=== PATIENT | male | born 1975 | race Caucasian/White ===

== ENCOUNTER 2019-12-15 06:37 | Emergency (ER) | payer MEDICAID, OTHER ==
[2019-12-15 06:42] VITALS: BP 139/96; PULSE 90; RESP 20; TEMP 97.7
--- NOTE | 2019-12-15 07:00 | XR ---
EXAMINATION TYPE: XR elbow complete RT DATE OF EXAM: 12/15/2019 CLINICAL HISTORY: Pain. TECHNIQUE: Frontal, lateral and oblique images of the right elbow are obtained. COMPARISON: None FINDINGS: There is no acute fracture/dislocation evident in the right elbow. No abnormal fat pad si gns are seen. The overlying soft tissue appears unremarkable. IMPRESSION: Unremarkable study.
[2019-12-15] MEDS ORDERED: ACET/COD 300 MG/30 MG STARTER PACK 6 TAB BTL PO STA (07:11)
--- NOTE | 2019-12-15 07:13 | ED ---
Extremity Problem HPI - General Chief complaint: Extremity Problem,Nontraumatic Stated complaint: R Arm Pain Time Seen by Provider: 12/15/19 06:45 Source: patient Mode of arrival: ambulatory Limitations: no limitations - History of Present Illness Initial comments: 44-year-old male presenting today for chief complaint of right elbow pain. 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 Patient states he has had right elbow pain for the past few weeks. Patient states that he was told by his mother that he has tennis elbow. Patient denies a swelling redness or limited range of motion. Patient states the pain at times shoots down towards his pinky. Patient denies any neck pain shoulder pain or recent injury to the neck or shoulder. She denies any numbness tingling loss sensation coolness or pallor of the extremity. Remaining review of system negative upon arrival patient appears well. no acute distress. Denies fevers. - Related Data Previous Rx's Medication Instructions Recorded B Complex-Vit C-Vit E-Zinc [Z-Bec] 1 each PO DAILY@1200 #30 tab 05/23/16 OLANZapine [ZyPREXA] 5 mg PO TID #90 tab 05/23/16 Allergies Allergy/AdvReac Type Severity Reaction Status Date / Time No Known Allergies Allergy Verified 12/15/19 06:42 Review of Systems ROS Statement: Those systems with pertinent positive or pertinent negative responses have been documented in the HPI. ROS Other: All systems not noted in ROS Statement are negative. Past Medical History Past Medical History: No Reported History, Musculoskeletal Disorder Additional Past Medical History / Comment(s): multiple orthopedic injuries bipolar etoh abuse History of Any Multi-Drug Resistant Organisms: None Reported Past Surgical History: Orthopedic Surgery Additional Past Surgical History / Comment(s): hand Past Psychological History: Bipolar, Depression Smoking Status: Never smoker Past Alcohol Use History: Abuse, Daily Past Drug Use History: Marijuana General Exam - General Exam Comments Initial Comments: General: The patient is awake and alert, in no distress, and does not appear acutely ill. Cardiovascular: There is a regular rate and rhythm. No murmur, rub or gallop is appreciated. Respiratory: Lungs are clear to auscultation, respirations are non-labored, breath sounds are equal. No wheezes, stridor, rales, or rhonchi. Gastrointestinal: Soft, non-distended, non-tender abdomen without masses or organomegaly noted. There is no rebound or guarding present.owel sounds are unremarkable.] Musculoskeletal: Normal inspection of his bilaterally there is point localized tenderness over the PROCESS OF THE RIGHT ELBOW. PATIENT HAS NO SPECIFIC TENDERNESS WITH FLEXION OR EXTENSION AT THE RIGHT ELBOW NOR A PARTICULAR SIDE WITH FLEXION EXTENSION AT THE WRIST. PATIENT IS FULL RANGE OF MOTION WITHOUT ANY SIGNIFICANT LIMITATIONS. PATIENT HAS SOME TENDERNESS WITH RANGE OF MOTION OF THE RIGHT ELBOW PATIENTS WITH INTACT SENSATION INTACT PROXIMAL AND DISTAL TO THE AREA OF COMPLAINT. FOR TORSION OF THE RIGHT SHOULDER AND MIDLINE TENDERNESS TO PALPATION OF THE CERVICAL SPINE. NEGATIVE SPURLING'S TEST. PATIENT DIDN'T MAKE THE OKAY FINGERS CROSSED TOWARDS OPEN OPPOSE THE SMALL DIGIT AND THUMB WITHOUT DIFFICULTY OF THE RIGHT HAND. Radial pulses equal bilaterally 2+. Neurological: A&O x 3. CN II-XII intact grossly, There are no obvious motor or sensory deficits. Coordination appears grossly intact. Speech is normal. Skin: Skin is warm and dry and no rashes or lesions are noted. Psychiatric: Cooperative, appropriate mood & affect, normal judgment. Limitations: no limitations Course Vital Signs 12/15/19 06:40 Temperature 97.7 F Pulse Rate 90 Respiratory 20 Rate Blood Pressure 139/96 O2 Sat by Pulse 100 Oximetry Medical Decision Making - Medical Decision Making 44yo male presented for right elbow pain. There is no obvious soft tissue abnormalitiessoft tissue swelling no erythema or limitations in range of motion does not appear to be septic joint. Patient most likely has an overuse injury. There is no osseous injury imaging studies. Vital diagnosis included tendinitis versus developing bursitis. As patient is point localized tenderness over the cramping process. I discussed the importance of return parameters and primary care follow-up and discuss and neck treatment rest melena. Patient verbalizes understanding of discharge appear mildly discussed the case by attending provider Dr. Briones Disposition Clinical Impression: Right elbow pain Disposition: HOME SELF-CARE Condition: Good Instructions (If sedation given, give patient instructions): Elbow Bursitis (ED) Additional Instructions: Please use medication as discussed. Please follow-up with family doctor in the next 2 days. Please return to emergency room if the symptoms increase or worsen or for any other concerns. Is patient prescribed a controlled substance at d/c from ED?: No Referrals: None,Stated [Primary Care Provider] - [facility]2 [facility] Time of Disposition: 07:13
== END 2019-12-15 07:54 | disposition home or self-care (01) ==
LOC: EC 06:37
DX: M25.521 Pain in right elbow (principal); Z98.890 Other specified postprocedural states
CPT/HCPCS: 99283

== ENCOUNTER 2019-12-21 05:10 | Inpatient (IN) | payer OTHER ==
[2019-12-21] MEDS ORDERED: LORazepam 2 MG/ML INJ IV STA (05:27)
[2019-12-21] MEDS ORDERED: LORazepam 2 MG/ML INJ IV PRN (05:29)
[2019-12-21] MEDS ORDERED: THIAMINE 100 MG/ML 2 ML VIAL IM STA (05:29)
--- NOTE | 2019-12-21 05:30 | ED ---
General Adult HPI - General Chief complaint: Alcohol Stated complaint: ETOH Time Seen by Provider: 12/21/19 05:20 Source: patient Mode of arrival: ambulatory Limitations: no limitations - History of Present Illness Initial comments: Dictation was produced using [employer] dictation software. please excuse any grammatical, word or spelling errors. Chief Complaint: 44-year-old male with past medical history of daily alcohol abuse presents with withdrawal symptoms. History of Present Illness: 44-year-old male. He states he is here today because of alcohol withdrawals. Last EtOH intake was told to 14 hours ago. Patient has had severe withdrawals in the past. He has been admitted to the hospital several years ago for a twitch withdrawals. Patient states he is also here because he wants to get help and quit. Patient currently has a GPS tether to be incarcerated for several years. The ROS documented in this emergency department record has been reviewed and confirmed by me. Those systems with pertinent positive or negative responses have been documented in the HPI. All other systems are other negative and/or noncontributory. PHYSICAL EXAM: General Impression: Alert and oriented x3, not in acute distress, tremulous HEENT: Normocephalic atraumatic, extra-ocular movements intact, pupils equal and reactive to light bilaterally, mucous membranes moist. Cardiovascular: Heart regular rate and rhythm, S1&S2 audible, no murmurs, rubs or gallops Chest: Lungs clear to auscultation bilaterally, no rhonchi, no wheeze, no rales Abdomen: Bowel sounds present, abdomen soft, non-tender, non-distended, no organomegaly Musculoskeletal: Pulses present and equal in all extremities, no peripheral edema Motor: no focal deficits noted Neurological: CN II-XII grossly intact, no focal motor or sensory deficits noted Skin: Intact with no visualized rashes Psych: Anxious ED course: 44 yo male presents with clinical presentation consistent with EtOH withdrawal. Vital signs upon arrival shows heart rate of 106, rest of vital sig ns within acceptable limits. Laboratory evaluation obtained. CBC, metabolic panel is unremarkable. No electrolyte abnormality. Serum alcohol is 37. Patient is shaky at bedside. Clinical presentation consistent with EtOH withdrawal. Patient initially apprehensive about being admitted to the hospital because he has GPS tether. Discussed with patient that he has a life-threatening illness any severe distress inpatient. Skin some Ativan with some improvement of his withdrawal symptoms. Patient be admitted to [facility]. - Related Data Previous Rx's Medication Instructions Recorded B Complex-Vit C-Vit E-Zinc [Z-Bec] 1 each PO DAILY@1200 #30 tab 05/23/16 OLANZapine [ZyPREXA] 5 mg PO TID #90 tab 05/23/16 Allergies Allergy/AdvReac Type Severity Reaction Status Date / Time No Known Allergies Allergy Verified 12/15/19 06:42 Review of Systems ROS Statement: Those systems with pertinent positive or pertinent negative responses have been documented in the HPI. ROS Other: All systems not noted in ROS Statement are negative. Past Medical History Past Medical History: No Reported History, Musculoskeletal Disorder Additional Past Medical History / Comment(s): multiple orthopedic injuries bipolar etoh abuse History of Any Multi-Drug Resistant Organisms: None Reported Past Surgical History: Orthopedic Surgery Additional Past Surgical History / Comment(s): hand Past Psychological History: Bipolar, Depression Smoking Status: Never smoker Past Alcohol Use History: Abuse, Daily Past Drug Use History: Marijuana General Exam Limitations: no limitations Course Vital Signs 12/21/19 05:13 Temperature 98.1 F Pulse Rate 106 H Respiratory 20 Rate Blood Pressure 148/85 O2 Sat by Pulse 96 Oximetry Medical Decision Making - Lab Data Result diagrams: 12/21/19 05:32 12/21/19 05:32 Lab Results 12/21/19 12/21/19 Range/Units 05:32 05:32 WBC 9.5 (3.8-10.6) k/uL RBC 4.43 (4.30-5.90) m/uL Hgb 15.3 (13.0-17.5) gm/dL Hct 43.9 (39.0-53.0) % MCV 99.0 (80.0-100.0) fL MCH 34.6 (25.0-35.0) pg MCHC 35.0 (31.0-37.0) g/dL RDW 12.3 (11.5-15.5) % Plt Count 272 (150-450) k/uL Neutrophils % 70 % Lymphocytes % 19 % Monocytes % 5 % Eosinophils % 3 % Basophils % 1 % Neutrophils # 6.7 (1.3-7.7) k/uL Lymphocytes # 1.8 (1.0-4.8) k/uL Monocytes # 0.5 (0-1.0) k/uL Eosinophils # 0.2 (0-0.7) k/uL Basophils # 0.1 (0-0.2) k/uL Sodium 138 (137-145) mmol/L Potassium 4.3 (3.5-5.1) mmol/L Chloride 103 (98-107) mmol/L Carbon Dioxide 22 (22-30) mmol/L Anion Gap 13 mmol/L BUN 14 (9-20) mg/dL Creatinine 0.78 (0.66-1.25) mg/dL Est GFR (CKD-EPI)AfAm >90 (>60 ml/min/1.73 sqM) Est GFR (CKD-EPI)NonAf >90 (>60 ml/min/1.73 sqM) Glucose 105 H (74-99) mg/dL Calcium 9.1 (8.4-10.2) mg/dL Magnesium 1.8 (1.6-2.3) mg/dL Total Bilirubin 0.9 (0.2-1.3) mg/dL AST 40 (17-59) U/L ALT 25 (4-49) U/L Alkaline Phosphatase 96 (38-126) U/L Total Protein 7.6 (6.3-8.2) g/dL Albumin 4.6 (3.5-5.0) g/dL Lipase 109 (23-300) U/L Serum Alcohol 37 mg/dL Disposition Clinical Impression: Alcohol withdrawal syndrome Disposition: ADMITTED IP TO THIS [facility] Condition: Fair Decision Time: 06:03
[2019-12-21] MEDS ORDERED: NALOXONE 0.4 MG/ML 1 ML VIAL IV PRN (05:35)
[2019-12-21] MEDS ORDERED: ACETAMINOPHEN TAB 325 MG TAB PO PRN (05:35)
[2019-12-21 05:59] LABS: Basophils # (A) 0.1 k/uL (0-0.2); Basophils % (A) 1 %; Eosinophils # (A) 0.2 k/uL (0-0.7); Eosinophils % (A) 3 %; HCT 43.9 % (39.0-53.0); HGB 15.3 gm/dL (13.0-17.5); Lymphocytes # (A) 1.8 k/uL (1.0-4.8); Lymphocytes % (A) 19 %; MCH 34.6 pg (25.0-35.0); Mean Platelet Volume 7.4; Monocytes # (A) 0.5 k/uL (0-1.0); Monocytes % (A) 5 %; Neutrophils # (A) 6.7 k/uL (1.3-7.7); Neutrophils % (A) 70 %; Platelet Count 272 k/uL (150-450); RBC 4.43 m/uL (4.30-5.90); RDW 12.3 % (11.5-15.5); WBC 9.5 k/uL (3.8-10.6)
[2019-12-21] MEDS: SODIUM CHLORIDE 0.9% 1,000 ML IV SCH ×2 (06:01→18:03)
[2019-12-21 06:02] LABS: ALT 25 U/L (4-49); AST 40 U/L (17-59); African American GFR (CKD) >90 (>60 ml/min/1.73 sqM); Albumin 4.6 g/dL (3.5-5.0); Alcohol 37 mg/dL; Alkaline Phosphatase 96 U/L (38-126); Anion Gap 13 mmol/L; Blood Urea Nitrogen 14 mg/dL (9-20); Calcium 9.1 mg/dL (8.4-10.2); Carbon Dioxide 22 mmol/L (22-30); Chloride 103 mmol/L (98-107); Glucose 105 mg/dL (74-99); Magnesium 1.8 mg/dL (1.6-2.3); Non-African American GFR(CKD) >90 (>60 ml/min/1.73 sqM); Potassium 4.3 mmol/L (3.5-5.1); Sodium 138 mmol/L (137-145); Total Bilirubin 0.9 mg/dL (0.2-1.3); Total Protein 7.6 g/dL (6.3-8.2)
[2019-12-21] MEDS ORDERED: ONDANSETRON 4 MG/2 ML VIAL IVP PRN (06:50)
[2019-12-21] MEDS: LORazepam 2 MG/ML INJ IV PRN ×4 (08:33→20:48)
--- NOTE | 2019-12-21 10:07 | P.HPIM ---
History of Present Illness 44-year-old the female came in for all call withdraws. Patient last drink was couple days ago patient drinks about one fifth of vodka every single day quit drinking for few months started drinking about a week ago patient is having alcohol withdrawals now his serum via score is around 14. Patient was complaining of some abdominal discomfort along with nausea denied any fever chills dysuria. Review of Systems REVIEW OF SYSTEMS: CONSTITUTIONAL: No fever, no malaise, no fatigue. HEENT: No recent visual problems or hearing problems. Denied any sore throat. CARDIOVASCULAR: No chest pain, orthopnea, PND, no palpitations, no syncope. PULMONARY: No shortness of breath, no cough, no hemoptysis. GASTROINTESTINAL: As mentioned in HPI NEUROLOGICAL: No headaches, no weakness, no numbness. HEMATOLOGICAL: Denies any bleeding or petechiae. GENITOURINARY: Denies any burning micturition, frequency, or urgency. MUSCULOSKELETAL/RHEUMATOLOGICAL: Denies any joint pain, swelling, or any muscle pain. ENDOCRINE: Denies any polyuria or polydipsia. The rest of the 14-point review of systems is negative. Past Medical History Past Medical History: No Reported History, Musculoskeletal Disorder Additional Past Medical History / Comment(s): multiple orthopedic injuries bipolar etoh abuse History of Any Multi-Drug Resistant Organisms: None Reported Past Surgical History: Orthopedic Surgery Additional Past Surgical History / Comment(s): hand Past Psychological History: Bipolar, Depression Smoking Status: Never smoker Past Alcohol Use History: Abuse, Daily Past Drug Use History: Marijuana - Past Family History Father Family Medical History: Cancer Additional Family Medical History / Comment(s): ETOH Mother Family Medical History: No Reported History Medications and Allergies Home Medications Medication Instructions Recorded Confirmed Type No Known Home Medications 12/21/19 12/21/19 History Allergies Allergy/AdvReac Type Severity Reaction Status Date / Time No Known Allergies Allergy Verified 12/21/19 09:17 Physical Exam Vitals: Vital Signs Temp Pulse Pulse Resp BP BP Pulse Ox 12/21/19 08:00 98.2 F 99 20 141/89 94 L 12/21/19 06:38 97.5 F L 110 H 18 132/88 95 12/21/19 05:13 98.1 F 106 H 20 148/85 96 Intake and Output 12/20/19 12/21/19 12/21/19 22:59 06:59 14:59 Other: Weight 81.647 kg PHYSICAL EXAMINATION: GENERAL: The patient is alert and oriented x3, not in any acute distress. Well developed, well nourished. As have tremors HEENT: Pupils are round and equally reacting to light. EOMI. No scleral icterus. No conjunctival pallor. Normocephalic, atraumatic. No pharyngeal erythema. No thyromegaly. CARDIOVASCULAR: S1 and S2 present. No murmurs, rubs, or gallops. PULMONARY: Chest is clear to auscultation, no wheezing or crackles. ABDOMEN: Soft, nontender, nondistended, normoactive bowel sounds. No palpable organomegaly. MUSCULOSKELETAL: No joint swelling or deformity. EXTREMITIES: No cyanosis, clubbing, or pedal edema. NEUROLOGICAL: Gross neurological examination did not reveal any focal deficits. SKIN: No rashes. Results CBC & Chem 7: 12/21/19 05:32 12/21/19 05:32 Labs: Abnormal Lab Results - Last 24 Hours (Table) 12/21/19 Range/Units 05:32 Glucose 105 H (74-99) mg/dL Thrombosis Risk Factor Assmnt - Choose All That Apply Each Factor Represents 1 point: Age 41-60 years Thrombosis Risk Factor Assessment Total Risk Factor Score: 1 Thrombosis Risk Factor Assessment Level: Low Risk Assessment and Plan Plan: -Alcohol withdrawal: Patient will be on Ativan CIWA protocol. IV fluids thiamine multivitamin [facility]. -Alcoholic gastritis: Protonix and Zofran -Alcohol abuse: Patient is willing alcohol but cannot go to rehabilitation program because he has 4 kids and he is incarcerated -Depression: Antidepressants are not will be helpful when he drinks alcohol. -Marijuana use COUNSELING WAS PROVIDED
[2019-12-21] MEDS: PANTOPRAZOLE 40 MG/10 ML VIAL IVP SCH (11:05)
[2019-12-21 12:13] LABS: Glucose,Whole Blood 169 mg/dL (75-99)
[2019-12-21 17:16] LABS: Glucose,Whole Blood 124 mg/dL (75-99)
[2019-12-21] MEDS: THIAMINE 100 MG TAB PO SCH (17:28)
[2019-12-21 20:31] LABS: Glucose,Whole Blood 122 mg/dL (75-99)
[2019-12-22] MEDS: SODIUM CHLORIDE 0.9% 1,000 ML IV SCH ×2 (04:46→16:48)
[2019-12-22 08:20] LABS: Glucose,Whole Blood 124 mg/dL (75-99)
[2019-12-22] MEDS: PANTOPRAZOLE 40 MG/10 ML VIAL IVP SCH (08:39)
[2019-12-22] MEDS: THIAMINE 100 MG TAB PO SCH ×2 (08:39→16:48)
[2019-12-22] MEDS: LORazepam 2 MG/ML INJ IV PRN ×2 (08:56→20:14)
[2019-12-22 11:10] LABS: Glucose,Whole Blood 116 mg/dL (75-99)
[2019-12-22] MEDS: NICOTINE 14MG/24HR PATCH TRANSDERM SCH (12:28)
--- NOTE | 2019-12-22 16:11 | P.PN ---
Subjective Progress Note Date: 12/22/19 Principal diagnosis: 44-year-old the female came in for alcohol withdrawal. Patient last drink was couple days ago patient drinks about one fifth of vodka every single day quit angely for few months started drinking about a week ago patient is having alcohol withdrawals now his current CIWA score is around 14. Patient was complaining of some abdominal discomfort along with nausea denied any fever chills dysuria. 12/22/2019 Patient is seen and evaluated and follow-up and continues to have some nausea. Patient was given Zofran and did tolerate sandwich. Patient continues to have some shaking and remains on the CIWA at this time. No acute overnight issues. Currently no reports of chest pain, shortness of breath, or palpitations. Patient is afebrile. Discussed with the patient at length about possible rehab upon discharge and although he really wants to quit he is unable to afford time off of work to go to rehab. Patient would like resources within the community and would like to seek counseling in the outpatient setting upon discharge. Case management is following. Social work will evaluate the patient. Objective - Vital Signs Vital signs: Vital Signs Temp 98.2 F 12/22/19 11:46 Pulse 84 12/22/19 11:46 Resp 17 12/22/19 11:46 BP 137/75 12/22/19 11:46 Pulse Ox 94 L 12/22/19 11:46 Intake & Output 12/21/19 12/22/19 12/22/19 18:59 06:59 18:59 Intake Total 360 1040 1600 Balance 360 1040 1600 Weight 81 kg Intake: Intake, IV Titration 800 800 Amount Sodium Chloride 0.9% 1, 800 800 000 ml @ 100 mls/hr IV . Q10H [facility] Rx#:[id number] Oral 360 240 800 Other: Voiding Method Toilet Toilet # Voids 3 1 3 - Exam GENERAL: The patient is alert and oriented x3, not in any acute distress. Well developed, well nourished. Is having mild tremors, pain team donned CIWA HEENT: Pupils are round and equally reacting to light. EOMI. No scleral icterus. No conjunctival pallor. Normocephalic, atraumatic. No pharyngeal erythema. No thyromegaly. CARDIOVASCULAR: S1 and S2 present. No murmurs, rubs, or gallops. PULMONARY: Chest is clear to auscultation, no wheezing or crackles. ABDOMEN: Soft, nontender, nondistended, normoactive bowel sounds. No palpable organomegaly. MUSCULOSKELETAL: No joint swelling or deformity. EXTREMITIES: No cyanosis, clubbing, or pedal edema. NEUROLOGICAL: Gross neurological examination did not reveal any focal deficits. SKIN: No rashes. - Labs CBC & Chem 7: 12/21/19 05:32 12/21/19 05:32 Labs: Abnormal Lab Results - Last 24 Hours (Table) 12/21/19 12/21/19 12/22/19 Range/Units 17:15 20:30 08:18 POC Glucose (mg/dL) 124 H 122 H 124 H (75-99) mg/dL 12/22/19 Range/Units 11:09 POC Glucose (mg/dL) 116 H (75-99) mg/dL Assessment and Plan Assessment: -Alcohol withdrawal: Patient remains on [facility] protocol. -Alcoholic gastritis: Protonix and Zofran -Alcohol abuse: Patient is willing to quit alcohol but cannot go to rehabilitation program because he has 4 kids and needs to work. -Depression: Antidepressants are not will be helpful when he drinks alcohol. -Marijuana use COUNSELING WAS PROVIDED Plan: Continue with [facility] at this time and will continue to monitor closely. Social work to evaluate the patient as he is requesting outside resources for possible counseling to assist in quitting alcohol. Patient is not open to rehab at this time as he needs to work. Possible discharge in 24-48 hours.
[2019-12-22 20:23] VITALS: RESP 16
[2019-12-23] MEDS: SODIUM CHLORIDE 0.9% 1,000 ML IV SCH ×2 (01:22→08:36)
[2019-12-23 05:11] VITALS: BP 121/74; PULSE 68; TEMP 97.6
[2019-12-23] MEDS: THIAMINE 100 MG TAB PO SCH (08:35)
[2019-12-23] MEDS: PANTOPRAZOLE 40 MG/10 ML VIAL IVP SCH (08:36)
[2019-12-23] MEDS: NICOTINE 14MG/24HR PATCH TRANSDERM SCH (08:41)
--- NOTE | 2019-12-23 12:22 | P.DS ---
Providers Date of admission: 12/21/19 05:35 Expected date of discharge: 12/23/19 Attending physician: Dayanara Traore Primary care physician: Stated None Hospital Course: Final diagnosis -Alcohol withdrawal -Alcoholic gastritis -Alcohol abuse -Depression -Marijuana use Discharge disposition Patient is being discharged in a stable condition with guarded prognosis to home and will follow-up with primary care provider upon discharge. Patient was also given resources within his community for possible counseling and help with alcohol rehab. Patient was also provided prescription for some Librium. Total time taken is 35 minutes. History of present illness This is a 44-year-old male who came in for alcohol withdrawal and was being closely monitored. Patient was maintained on the CIWA protocol. Continued to have some abdominal discomfort along with nausea although was relieved with Zofran. Today patient is feeling much better and denies any nausea and has been tolerating diet. Patient would like to go home today. Social work evaluated the patient and provided some resources for community mental health and some counseling resources. Patient states he would like to do rehab although cannot at this time as he has to continue to work to pay his bills. Currently no reports of chest pain, shortness of breath, or palpitations. Patient is afebrile. Prescription for Librium was provided upon discharge and instructed the patient to continue to avoid alcohol use. On exam vital signs are stable. Temp is 97.6F, pulse is 68, respirations are 16, blood pressure is 121/74, oxygen saturation is 96% on room air. Cardio S1, S2 are present. Respiratory shows clear to auscultation. Abdomen is soft and nontender. Nervous system shows no focal deficits. Please refer to medication reconciliation sheet for a list of medications. Patient Condition at Discharge: Fair Plan - Discharge Summary Discharge Rx Participant: Yes New Discharge Prescriptions: New chlordiazePOXIDE HCl [Librium] 10 mg PO QID 3 Days #12 capsule Thiamine [Vitamin B-1] 100 mg PO BID-W/MEALS 30 Days #60 tab Discharge Medication List Thiamine [Vitamin B-1] 100 mg PO BID-W/MEALS 30 Days #60 tab 12/23/19 [Rx] chlordiazePOXIDE HCl [Librium] 10 mg PO QID 3 Days #12 capsule 12/23/19 [Rx] Patient Instructions/Handouts: Thiamine (By mouth), Chlorthalidone (By mouth), How to Stop Smoking (DC), Depression (DC), Abuse of Alcohol (DC) Activity/Diet/Wound Care/Special Instructions: Activity Limited until follow-up Follow-up with primary care provider upon discharge May use Librium as needed and avoid any alcohol intake Continue current diet Discharge Disposition: HOME SELF-CARE
== END 2019-12-23 12:13 | disposition home or self-care (01) | DRG 897 ==
LOC: EC 05:10 → 3SCARD 05:35 → 5NMEDONC 23:01
PROVIDERS: ADMIT Hospitalist; ATTEND Hospitalist
DX: F10.239 Alcohol dependence with withdrawal, unspecified (principal); F12.90 Cannabis use, unspecified, uncomplicated; K29.20 Alcoholic gastritis without bleeding; F31.9 Bipolar disorder, unspecified; Z71.51 Drug abuse counseling and surveillance of drug abuser
CPT/HCPCS: 36415; 80053; 80320; 83690; 83735; 85025; 93005; 96374; 99285

== ENCOUNTER 2021-02-13 11:41 | Emergency (ER) | payer OTHER ==
[2021-02-13 11:45] VITALS: BP 154/98; PULSE 82; RESP 18; TEMP 97.9
--- NOTE | 2021-02-13 12:02 | ED ---
Upper Extremity HPI - General Chief Complaint: Extremity Injury, Upper Stated Complaint: hand injury Time Seen by Provider: 02/13/21 11:47 Source: patient, RN notes reviewed Mode of arrival: ambulatory Limitations: no limitations - History of Present Illness Initial Comments: 45-year-old male presents emergency Department with chief complaint right hand tenderness. Patient states that he was walking towards his back states he tripped falling onto his right hand. Patient does admit that he's had prior surgery on his right hand for fracture. Patient complains of pain over the fourth and fifth metacarpal region. No paresthesias no head injury no loss conscious. - Related Data Previous Rx's Medication Instructions Recorded Thiamine [Vitamin B-1] 100 mg PO BID-W/MEALS 30 Days #60 12/23/19 tab chlordiazePOXIDE HCl [Librium] 10 mg PO QID 3 Days #12 capsule 12/23/19 Allergies Allergy/AdvReac Type Severity Reaction Status Date / Time No Known Allergies Allergy Verified 02/13/21 11:43 Review of Systems ROS Statement: Those systems with pertinent positive or pertinent negative responses have been documented in the HPI. ROS Other: All systems not noted in ROS Statement are negative. Past Medical History Past Medical History: No Reported History, Musculoskeletal Disorder Additional Past Medical History / Comment(s): multiple orthopedic injuries bipolar etoh abuse History of Any Multi-Drug Resistant Organisms: None Reported Past Surgical History: Orthopedic Surgery Additional Past Surgical History / Comment(s): hand Past Psychological History: Bipolar, Depression Smoking Status: Never smoker Past Alcohol Use History: Occasional Past Drug Use History: Marijuana - Past Family History Father Family Medical History: Cancer Additional Family Medical History / Comment(s): ETOH Mother Family Medical History: No Reported History General Exam Limitations: no limitations General appearance: alert, in no apparent distress Head exam: Present: atraumatic, normocephalic, normal inspection Eye exam: Present: normal appearance, PERRL, EOMI. Absent: scleral icterus, conjunctival injection, periorbital swelling Neck exam: Present: full ROM Respiratory exam: Present: normal lung sounds bilaterally. Absent: respiratory distress, wheezes, rales, rhonchi, stridor Cardiovascular Exam: Present: regular rate, normal rhythm, normal heart sounds. Absent: systolic murmur, diastolic murmur, rubs, gallop, clicks Extremities exam: Present: other (Right hand swelling over the fourth and fifth metacarpal area with tenderness and ecchymosis) Neurological exam: Present: alert Skin exam: Present: warm, dry, intact, normal color. Absent: rash Course Vital Signs 02/13/21 11:43 Temperature 97.9 F Pulse Rate 82 Respiratory 18 Rate Blood Pressure 154/98 O2 Sat by Pulse 97 Oximetry Procedures - Orthopedic Splinting/Casting Injury #1 Side: right Upper Extremity Injury Location: short arm, hand Upper Extremity Immobilizer: ulnar gutter, synthetic pre-padded splint Medical Decision Making - Medical Decision Making Patient has fracture of the fourth and fifth metacarpal the base. Patient was splinted and will follow-up with his orthopedic physician Dr. Ríos. Disposition Clinical Impression: Fracture of base of fifth metacarpal bone of right hand, Fracture of base of fourth metacarpal bone of right hand Disposition: HOME SELF-CARE Condition: Stable Instructions (If sedation given, give patient instructions): Hand Fracture (ED) Additional Instructions: Please return to the Emergency Department if symptoms worsen or any other concerns. Is patient prescribed a controlled substance at d/c from ED?: No Referrals: Carlos A Jamil MD [Primary Care Provider] - 1-2 days Piero Ríos DO [Doctor of Osteopathic Medicine] - 1-2 days Time of Disposition: 12:29
--- NOTE | 2021-02-13 12:27 | XR ---
EXAMINATION TYPE: XR hand complete RT DATE OF EXAM: 02/13/2021 COMPARISON: NONE HISTORY: Pain TECHNIQUE: Three views are submitted. FINDINGS: There are displaced fractures involving the base of the fourth and fifth digit in suspicion for intra -articular fracture involving the base of the third digit. Extensive soft tissue edema. Remaining oss eous structures intact. The joint spaces are preserved and there is no acute fracture or dislocation. IMPRESSION: 1. Acute displaced fractures involving the base of the fourth and fifth metacarpals. Suspected additi onal nondisplaced intra-articular fracture base of third metacarpal.
== END 2021-02-13 13:36 | disposition home or self-care (01) ==
LOC: EC 11:41
DX: S62.316A Displaced fracture of base of fifth metacarpal bone, right hand, initial encounter for closed fracture (principal); F32.9 Major depressive disorder, single episode, unspecified; F12.90 Cannabis use, unspecified, uncomplicated; W01.0XXA Fall on same level from slipping, tripping and stumbling without subsequent striking against object, initial encounter; Y93.01 Activity, walking, marching and hiking
CPT/HCPCS: 29125; 99283

== ENCOUNTER → 2021-03-08 | Outpatient (CLI) | payer OTHER ==
[2021-03-08 13:37] LABS: HCT 44.6 % (39.0-53.0); HGB 15.3 gm/dL (13.0-17.5); MCH 35.5 pg (25.0-35.0); MCHC 34.4 g/dL (31.0-37.0); MCV 103.1 fL (80.0-100.0); Mean Platelet Volume 6.8; Platelet Count 280 k/uL (150-450); RBC 4.33 m/uL (4.30-5.90); RDW 11.9 % (11.5-15.5); WBC 6.8 k/uL (3.8-10.6)
== END | disposition home or self-care (01) ==
LOC: LABPAT 11:29
PROVIDERS: ATTEND Surgery
DX: Z01.812 Encounter for preprocedural laboratory examination (principal); K40.90 Unilateral inguinal hernia, without obstruction or gangrene, not specified as recurrent
CPT/HCPCS: 85027

== ENCOUNTER 2021-03-10 06:06 | Day surgery (SDC) | payer OTHER ==
[2021-03-09 12:30] VITALS: BMI 20.1
[~2021-03-10 06:06] MED LIST: ACETAMINOPHEN TAB 500 MG TAB PO PRN; DEXAMETHASONE SOD PHOSPHATE 4 MG/ML 1 ML VIAL IV ONE; HEPARIN SODIUM,PORCINE/PF 5,000 UNIT/0.5 ML SYRINGE SQ PRN; LACTATED RINGERS 1,000 ML IV SCH; MIDAZOLAM 2 MG/2 ML VIAL IV PRN; ONDANSETRON 4 MG/2 ML VIAL IVP ONE; SCOPOLAMINE 1.5MG/72HR PATCH TRANSDERM ONE
[2021-03-10] MEDS ORDERED: HYDROmorphone 0.5 MG/0.5 ML SYRINGE IVP PRN (07:00)
[2021-03-10] MEDS ORDERED: GLYCOPYRROLATE 0.2 MG/ML 2 ML VIAL ONE (07:46)
[2021-03-10] MEDS ORDERED: SUCCINYLCHOLINE CHLORIDE 100 MG/5 ML SYR IV ONE (07:46)
[2021-03-10] MEDS ORDERED: ROCURONIUM 10 MG/ML (5 ML VIAL) IV ONE (07:46)
[2021-03-10] MEDS ORDERED: fentaNYL (PF) 50 MCG/ML 2 ML AMP ONE (07:46)
[2021-03-10] MEDS ORDERED: LIDOCAINE 1% INJ 10MG/ML (20 ML MDV) ONE (07:46)
[2021-03-10] MEDS ORDERED: NEOSTIGMINE 1 MG/ML 10 ML VIAL ONE (07:46)
[2021-03-10] MEDS ORDERED: PROPOFOL 10 MG/ML 20 ML VIAL IV ONE (07:46)
[2021-03-10] MEDS ORDERED: MIDAZOLAM 2 MG/2 ML VIAL ONE (07:46)
[2021-03-10] MEDS ORDERED: KETOROLAC 15 MG/ML 1 ML VIAL ONE (07:46)
[2021-03-10] MEDS ORDERED: BUPIVACAIN-EPI 0.25%-1:200,000 30 ML VIAL SQ ONE (08:09)
--- NOTE | 2021-03-10 09:05 | P.OP ---
Date of Procedure: 03/10/21 Procedure(s) Performed: PREOPERATIVE DIAGNOSIS: Right inguinal hernia POSTOPERATIVE DIAGNOSIS: Same PROCEDURE: Laparoscopic da Syl assisted repair right inguinal hernia with mesh SURGEON: Dr. Soto ANESTHESIA: General OPERATIVE PROCEDURE DETAILS: Patient was placed in the operating table in the supine position. The patient was placed under general anesthesia. The abdomen was prepped and draped in usual sterile fashion. A small curvilinear supraumbilical incision was made. The fascia was retracted anteriorly with Lawanda forceps. The Veress needle was inserted. The saline drop test was normal. Insufflation took place to 15 mmHg. An 8 mm trocar was placed into the peritoneal cavity. 2 additional 8 mm trochars were placed in the right upper quadrant and left upper quadrant under visualization. The robotic arms were then brought in and docked into place. The fenestrated bipolar was used in the left arm and the laparoscopic marly was utilized in the right arm. A 30 8 mm scope was used in the up position. The peritoneal cavity was inspected. Patient had a direct left inguinal hernia. No hernia was seen on the right-hand side. The peritoneum was incised in a horizontal fashion cephalad to the internal inguinal ring. Following that careful dissection of the preperitoneal space took place. This took place using both electrocautery, sharp dissection but primarily blunt dissection. Visualization of the pubic tubercle and Leoncio's ligament took place medially. Full dissection took place laterally as well. The hernia sac was fully dissected. Once we had adequate space the Bard 3-D mid extra-large mesh was advanced into the preperitoneal space and flattened out appropriately to cover all potential hernia sites. No sutures were used. The peritoneal defect was then closed using a locking 2-0 VLok suture. The redundant preperitoneal tissue was incorporated into our peritoneal closure. The pneumoperitoneum was then evacuated. The skin of all 3 sites was closed using a 4-0 Monocryl stitch. Skin glue was then applied. HERNIA CHARACTERISTICS: Length: 2 cm Width: 2 cm Type: Reducible direct inguinal TYPE OF MESH USED: Bard 3-D XL LOCATION OF MESH: Preperitoneal FIXATION: None DISPOSITION: Stable to recovery room
[2021-03-10 09:19] VITALS: TEMP 97.2
[2021-03-10 09:27] VITALS: RESP 16
[2021-03-10] MEDS ORDERED: LACTATED RINGERS 1,000 ML IV ONE (09:49)
[2021-03-10 10:32] VITALS: BP 132/71; PULSE 56
[2021-03-10] MEDS ORDERED: ACETAMINOPHEN TAB 325 MG TAB PO SCH (12:00)
[2021-03-10] MEDS ORDERED: IBUPROFEN 600 MG TAB PO SCH (12:15)
== END 2021-03-10 10:31 | disposition home or self-care (01) ==
LOC: OR 06:06
PROVIDERS: ATTEND Surgery
DX: K40.90 Unilateral inguinal hernia, without obstruction or gangrene, not specified as recurrent (principal); F41.9 Anxiety disorder, unspecified; F31.9 Bipolar disorder, unspecified; D64.9 Anemia, unspecified; Z98.890 Other specified postprocedural states
CPT/HCPCS: 49650; S2900

== ENCOUNTER 2021-06-09 11:32 | Observation (INO) | payer OTHER ==
[2021-06-09] MEDS ORDERED: LORazepam 2 MG/ML INJ IV STA ×2 (12:33→14:38)
[2021-06-09] MEDS ORDERED: SODIUM CHLORIDE 0.9% 1,000 ML IV STA ×2 (12:33)
[2021-06-09] MEDS ORDERED: ONDANSETRON 4 MG/2 ML VIAL IVP STA (12:34)
--- NOTE | 2021-06-09 12:34 | ED ---
General Adult HPI - General Chief complaint: Nausea/Vomiting/Diarrhea Stated complaint: Alcohol Withdrawal Time Seen by Provider: 06/09/21 12:19 Source: patient Mode of arrival: ambulatory Limitations: no limitations - History of Present Illness Initial comments: 45-year-old male with a past medical history of bipolar disorder, alcohol abuse presents to the emergency room for a chief complaint of alcohol withdrawal. Patient states his last dose of alcohol was last night. States he drinks a fifth of vodka per day. Patient states today he is nauseous and vomiting and feels he is withdrawing. States he has not decided if he is quitting drinking o r not. Patient denies any suicidal thoughts or thoughts of harming himself.Patient has no other complaints at this time including shortness of breath, chest pain, abdominal pain, nausea or vomiting, headache, or visual changes. - Related Data Home Medications Medication Instructions Recorded Confirmed No Known Home Medications 06/09/21 06/09/21 Allergies Allergy/AdvReac Type Severity Reaction Status Date / Time No Known Allergies Allergy Verified 06/09/21 13:54 Review of Systems ROS Statement: Those systems with pertinent positive or pertinent negative responses have been documented in the HPI. ROS Other: All systems not noted in ROS Statement are negative. Past Medical History Past Medical History: No Reported History, Musculoskeletal Disorder Additional Past Medical History / Comment(s): multiple orthopedic injuries bipolar etoh abuse History of Any Multi-Drug Resistant Organisms: None Reported Past Surgical History: Orthopedic Surgery Additional Past Surgical History / Comment(s): hand Past Psychological History: Bipolar, Depression Smoking Status: Current every day smoker Past Alcohol Use History: Abuse, Daily, Heavy Past Drug Use History: Marijuana - Past Family History Father Family Medical History: Cancer Additional Family Medical History / Comment(s): ETOH Mother Family Medical History: No Reported History General Exam Limitations: no limitations General appearance: alert, in no apparent distress Head exam: Present: atraumatic Eye exam: Present: normal appearance, PERRL, EOMI. Absent: scleral icterus, conjunctival injection ENT exam: Present: normal exam, mucous membranes moist Neck exam: Present: normal inspection, full ROM. Absent: tenderness Respiratory exam: Present: normal lung sounds bilaterally. Absent: respiratory distress, wheezes Cardiovascular Exam: Present: regular rate, normal rhythm, normal heart sounds GI/Abdominal exam: Present: soft, normal bowel sounds. Absent: distended, tenderness Neurological exam: Present: alert Course Vital Signs 06/09/21 12:05 Temperature 98.5 F Pulse Rate 106 H Respiratory 20 Rate Blood Pressure 136/89 O2 Sat by Pulse 95 Oximetry Medical Decision Making - Medical Decision Making Vitals are stable. Laboratory evaluation was obtained which did show hemoconcentration likely related to dehydration. CMP does reveal an anion gap of 17, likely secondary to alcoholic ketosis. Alcohol 259. at this time patient is not safe for discharge home. He did drive his car into the ER and lives half hour away. He contacted a ride home. Patient will need to be monitored until he is sober to make medical decisions. He is agreeable to this. Patient will be started on C1 protocol as he may have withdrawal symptoms. He will return h ere for any worsening symptoms. - Lab Data Result diagrams: 06/09/21 12:55 06/09/21 12:55 Lab Results 06/09/21 06/09/21 06/09/21 Range/Units 12:55 12:55 12:55 WBC 10.2 (3.8-10.6) k/uL RBC 4.96 (4.30-5.90) m/uL Hgb 18.4 H (13.0-17.5) gm/dL Hct 52.4 (39.0-53.0) % MCV 105.7 H (80.0-100.0) fL MCH 37.1 H (25.0-35.0) pg MCHC 35.1 (31.0-37.0) g/dL RDW 13.3 (11.5-15.5) % Plt Count 426 (150-450) k/uL MPV 6.6 Neutrophils % 62 % Lymphocytes % 30 % Monocytes % 4 % Eosinophils % 1 % Basophils % 1 % Neutrophils # 6.4 (1.3-7.7) k/uL Lymphocytes # 3.1 (1.0-4.8) k/uL Monocytes # 0.4 (0-1.0) k/uL Eosinophils # 0.1 (0-0.7) k/uL Basophils # 0.1 (0-0.2) k/uL Macrocytosis Moderate Sodium 144 (137-145) mmol/L Potassium 4.4 (3.5-5.1) mmol/L Chloride 110 H (98-107) mmol/L Carbon Dioxide 17 L (22-30) mmol/L Anion Gap 17 mmol/L BUN 8 L (9-20) mg/dL Creatinine 0.68 (0.66-1.25) mg/dL Est GFR (CKD-EPI)AfAm >90 (>60 ml/min/1.73 sqM) Est GFR (CKD-EPI)NonAf >90 (>60 ml/min/1.73 sqM) Glucose 132 H (74-99) mg/dL Calcium 9.7 (8.4-10.2) mg/dL Magnesium 1.8 (1.6-2.3) mg/dL Total Bilirubin 0.3 (0.2-1.3) mg/dL AST 28 (17-59) U/L ALT 16 (4-49) U/L Alkaline Phosphatase 91 (38-126) U/L Total Protein 8.2 (6.3-8.2) g/dL Albumin 5.0 (3.5-5.0) g/dL Serum Alcohol 259 H* mg/dL Disposition Clinical Impression: Alcohol intoxication Disposition: ADMITTED IP TO THIS HOSP Is patient prescribed a controlled substance at d/c from ED?: No Referrals: Carlos A Jamil MD [Primary Care Provider] - 1-2 days Time of Disposition: 14:56
[2021-06-09 13:05] LABS: Basophils # (A) 0.1 k/uL (0-0.2); Basophils % (A) 1 %; Eosinophils # (A) 0.1 k/uL (0-0.7); Eosinophils % (A) 1 %; HCT 52.4 % (39.0-53.0); HGB 18.4 gm/dL (13.0-17.5); Lymphocytes # (A) 3.1 k/uL (1.0-4.8); Lymphocytes % (A) 30 %; MCH 37.1 pg (25.0-35.0); MCHC 35.1 g/dL (31.0-37.0); MCV 105.7 fL (80.0-100.0); Macrocytosis Moderate; Mean Platelet Volume 6.6; Monocytes # (A) 0.4 k/uL (0-1.0); Monocytes % (A) 4 %; Neutrophils # (A) 6.4 k/uL (1.3-7.7); Neutrophils % (A) 62 %; Platelet Count 426 k/uL (150-450); RBC 4.96 m/uL (4.30-5.90); RDW 13.3 % (11.5-15.5); WBC 10.2 k/uL (3.8-10.6)
[2021-06-09 13:15] LABS: Magnesium 1.8 mg/dL (1.6-2.3)
[2021-06-09 14:15] LABS: ALT 16 U/L (4-49); AST 28 U/L (17-59); African American GFR (CKD) >90 (>60 ml/min/1.73 sqM); Alkaline Phosphatase 91 U/L (38-126); Anion Gap 17 mmol/L; Blood Urea Nitrogen 8 mg/dL (9-20); Calcium 9.7 mg/dL (8.4-10.2); Carbon Dioxide 17 mmol/L (22-30); Chloride 110 mmol/L (98-107); Glucose 132 mg/dL (74-99); Non-African American GFR(CKD) >90 (>60 ml/min/1.73 sqM); Potassium 4.4 mmol/L (3.5-5.1); Sodium 144 mmol/L (137-145); Total Bilirubin 0.3 mg/dL (0.2-1.3); Total Protein 8.2 g/dL (6.3-8.2)
[2021-06-09] MEDS ORDERED: LORazepam 2 MG/ML INJ IV PRN ×3 (14:48)
[2021-06-09] MEDS ORDERED: SODIUM CHLORIDE 0.9% 1,000 ML with MVI, ADULT NO.4 WITH VIT K 10 ML, THIAMINE 100 MG, F... IV ONE ×4 (14:48)
[2021-06-09] MEDS ORDERED: THIAMINE 100 MG/ML 2 ML VIAL IM STA (14:48)
[2021-06-09] MEDS ORDERED: ONDANSETRON 4 MG/2 ML VIAL IVP PRN (14:52)
[2021-06-09] MEDS ORDERED: NALOXONE 0.4 MG/ML 1 ML VIAL IV PRN (14:52)
--- NOTE | 2021-06-09 16:45 | P.HPIM ---
<Curt Falcon - Last Filed: 06/09/21 16:07> History of Present Illness H&P Date: 06/09/21 History of Presenting Illness: Patient is a 45-year-old male with a past medical history of bipolar disorder, EtOH abuse, nicotine dependence, and marijuana use. Patient [facility] with a chief complaint of alcohol withdrawal. Per ED documentation patient reported feeling anxious, nauseous, tremors, and was vomiting feeling as though he was going through withdrawal. Patient was seen and fully evaluated in the ED. His blood alcohol level was 259 and concerns of alcoholic ketoacidosis with normal anion gap acidosis as evidenced by chloride of 110, carbon dioxide 17, and anion gap of 17. CBC revealed macrocytic macrochromic polycythemia with hemoglobin of 18.4, MCV 105.7, and MCH of 37.1. Patient reported drinking at least a fifth of vodka daily with last drink reported being last night. Patient states he does not want help or to be placed in a rehab because he does not have a problem and knows how to quit if he wants to. In addition to alcohol abuse patient reports smoking one pack of cigarettes daily as well as daily marijuana use. Patient denies having any other drug use. Patient also denies having any other complaints including headache, lightheadedness, dizziness, chest pain, palpitations, shortness of breath, or experiencing any numbness/tingling/weakness in extremities. Patient denies having any recent injuries or falls. Patient is agitated and argumentative at times and using foul language throughout assessment. Security was called to bedside during assessment. Review of systems: Pertinent positives and negatives as discussed in HPI, a complete review of systems was performed and all other systems are negative. Physical exam: Vital signs reviewed and stable. General: Nontoxic, no distress and appears stated age. Disheveled and unkempt appearance. Derm: Skin warm and dry, normal coloration for ethnicity. Head: Atraumatic, normocephalic and symmetric. Eyes: EOMs intact, no lid lag, and anicteric sclera Mouth: no lip lesions, mucus membranes moist Cardiovascular: Tachycardic rate with regular rhythm with normal S1S2, no murmur, positive posterior tibial pulses bilaterally, and cap refill < 2 seconds. Lungs: Respirations even, regular, and unlabored on room air. Lungs CTA bilaterally, no rhonchi, no rales, no wheezing, and no accessory muscle usage. Abdominal: soft, nontender to palpation, no guarding, no appreciable organomegaly Ext: ROM intact. No gross muscle atrophy, no edema, no contractures Neuro: Speech clear, face symmetrical and CN II-XII grossly intact with no noted focal neuro deficits Psych: Alert and oriented to person, place, time, and situation. Patient agitated, uncooperative and argumentative with use of foul language throughout assessment. Assessment and Plan of Care: Acute alcohol intoxication with impending withdrawal Normal anion gap acidosis likely resulting from Alcoholic ketoacidosis -[facility] Protocol with symptom triggered medication management with benzodiazepines. -Banana bag 1 dose followed by continuous IV hydration. -Thiamine 100 mg twice a day -Multivitamin daily -Folate 1 mg daily -Seizure, fall, aspiration, and elopement precautions in place. -Urine drug screen -Continued close monitoring of electrolytes and replace as needed. -Telemetry monitoring. 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 -Liver profile, folate, and vitamin B12 to be obtained with a.m. labs. -Thiamine, folate, and multivitamin vitamin supplements daily. -Continued IV hydration -Encourage patient on the importance of cessation of alcohol use/abuse and the risks associated with continued use. Nicotine dependence -NicoDerm patch -Patient to continue to receive encouragement and education on the importance of smoking cessation and the risks associated with continued use. The patient is admitted with an anticipated less than 2 midnight stay for evaluation of alcohol intoxication with impending withdrawal, normal anion gap acidosis, and macrocytic microchromic polycythemia. CODE STATUS: Full code DVT prophylaxis: Heparin Discussed with: Patient and RN Anticipated discharge date: Clinical course to determine Anticipated discharge place: Home A total of 45 minutes was spent on the care of this complex patient more than 50% of the time was spent in counseling and care coordination. Past Medical History Past Medical History: No Reported History, Musculoskeletal Disorder Additional Past Medical History / Comment(s): multiple orthopedic injuries bipolar etoh abuse History of Any Multi-Drug Resistant Organisms: None Reported Past Surgical History: Orthopedic Surgery Additional Past Surgical History / Comment(s): hand Past Psychological History: Bipolar, Depression Smoking Status: Current every day smoker Past Alcohol Use History: Abuse, Daily, Heavy Past Drug Use History: Marijuana - Past Family History Father Family Medical History: Cancer Additional Family Medical History / Comment(s): ETOH Mother Family Medical History: No Reported History Medications and Allergies Home Medications Medication Instructions Recorded Confirmed Type No Known Home Medications 06/09/21 06/09/21 History Allergies Allergy/AdvReac Type Severity Reaction Status Date / Time No Known Allergies Allergy Verified 06/09/21 13:54 Physical Exam Vitals: Vital Signs Temp Pulse Resp BP Pulse Ox 06/09/21 15:00 80 16 93/50 100 06/09/21 12:05 98.5 F 106 H 20 136/89 95 Intake and Output 06/09/21 06/09/21 06/09/21 06:59 14:59 22:59 Other: Weight 58.967 kg Results CBC & Chem 7: 06/09/21 12:55 06/09/21 12:55 Labs: Abnormal Lab Results - Last 24 Hours (Table) 06/09/21 06/09/21 06/09/21 Range/Units 12:55 12:55 12:55 Hgb 18.4 H (13.0-17.5) gm/dL MCV 105.7 H (80.0-100.0) fL MCH 37.1 H (25.0-35.0) pg Chloride 110 H (98-107) mmol/L Carbon Dioxide 17 L (22-30) mmol/L BUN 8 L (9-20) mg/dL Glucose 132 H (74-99) mg/dL Serum Alcohol 259 H* mg/dL <Vanessa Meza - Last Filed: 06/09/21 19:02> History of Present Illness Patient seen and examined independently. Patient was also seen by Curt Falcon NP and case was discussed. I am in agreement with subjective, physical exam, assessment and plan as written above and amended below. Patient is angry and upset that he is here. Multiple times that he has somebody come in and be happy related to an otherwise we will need to wait several hours to ensure that he is no longer intoxicated. It is very unclear why he presented to the hospital. He thought he was withdrawing and felt terrible. He had not drank in 8 hours,. He now feels better and wants to leave. It does not appear he was try to detox. General: non toxic, no distress, appears at stated age Derm: warm, dry Head: atraumatic, normocephalic, symmetric Eyes: EOMI, no lid lag, anicteric sclera Mouth: no lip lesion, mucus membranes moist Cardiovascular: S1S2 reg, no murmur, positive posterior tibial pulse bilateral, Lungs: CTA bilateral, no rhonchi, no rales , no accessory muscle use Abdominal: soft, nontender to palpation, no guarding, no appreciable organomegaly Psych: Alert, oriented, angry upset rodrigues not appear to be clear thinking Physical Exam Osteopathic Statement: *. No significant issues noted on an osteopathic structural exam other than those noted in the History and Physical/Consult. Vitals: Vital Signs Temp Pulse Pulse Resp BP Pulse Ox 06/09/21 15:30 98.3 F 79 19 06/09/21 15:00 80 16 93/50 100 06/09/21 12:05 98.5 F 106 H 20 136/89 95 Intake and Output 06/09/21 06/09/21 06/09/21 06:59 14:59 22:59 Other: Weight 58.967 kg 58.967 kg Results CBC & Chem 7: 06/09/21 12:55 06/09/21 12:55 Labs: Abnormal Lab Results - Last 24 Hours (Table) 06/09/21 06/09/21 06/09/21 Range/Units 12:55 12:55 12:55 Hgb 18.4 H (13.0-17.5) gm/dL MCV 105.7 H (80.0-100.0) fL MCH 37.1 H (25.0-35.0) pg Chloride 110 H (98-107) mmol/L Carbon Dioxide 17 L (22-30) mmol/L BUN 8 L (9-20) mg/dL Glucose 132 H (74-99) mg/dL Serum Alcohol 259 H* mg/dL
[2021-06-09] MEDS: SODIUM CHLORIDE 0.9% 1,000 ML IV SCH (18:37)
[2021-06-09] MEDS: NICOTINE 21MG/24HR PATCH TRANSDERM SCH (18:38)
[2021-06-09 20:15] LABS: Appearance,Urine Clear (Clear); Bilirubin,Urine Negative (Negative); Blood,Urine Negative (Negative); Color,Urine Yellow; Glucose,Urine (UA) Negative (Negative); Ketones,Urine Negative (Negative); Leukocyte Esterase,Urine Negative (Negative); Nitrite,Urine Negative (Negative); PH, Urine 5.5 (5.0-8.0); Protein,Urine Trace (Negative); Urobilinogen,Urine <2.0 mg/dL (<2.0)
[2021-06-09 20:25] LABS: Cocaine Screen,Urine Not Detected (NotDetected); Opiate Screen,Urine Not Detected (NotDetected); Phencyclidine Screen,Urine Not Detected (NotDetected); Urn Cannabinoid Scrn Detected (NotDetected)
[2021-06-09 20:26] LABS: Amphetamine Screen,Urine Not Detected (NotDetected); Barbiturate Screen,Urine Not Detected (NotDetected); Benzodiazepines Screen,Urine Detected (NotDetected); Methadone Screen, Urine Not Detected (NotDetected); Oxycodone Screen, Urine Not Detected (NotDetected); Tricyclic Antidepressant,Urine Not Detected (NotDetected)
[2021-06-10] MEDS: SODIUM CHLORIDE 0.9% 1,000 ML IV SCH (03:55)
[2021-06-10 07:14] VITALS: BP 125/79; PULSE 88; RESP 14; TEMP 98.2
[2021-06-10] MEDS ORDERED: THIAMINE 100 MG TAB PO SCH (07:30)
[2021-06-10 08:49] LABS: HCT 39.7 % (39.6-50.0); HGB 13.9 g/dL (13.0-17.0); MCH 35.5 pg (27.0-32.0); MCV 101.3 fL (80.0-97.0); Mean Platelet Volume 9.7 fL (9.5-12.2); Platelet Count 250 X 10*3/uL (140-440); RBC 3.92 X 10*6/uL (4.40-5.60); RDW 12.3 % (11.5-14.5); WBC 5.48 X 10*3/uL (4.50-10.00)
[2021-06-10] MEDS ORDERED: MULTIVITAMINS, THERA 1 EACH TAB PO SCH (09:00)
[2021-06-10] MEDS ORDERED: FOLIC ACID 1 MG TAB PO SCH (09:00)
[2021-06-10] MEDS: NICOTINE 21MG/24HR PATCH TRANSDERM SCH (09:09)
[2021-06-10 13:43] LABS: Magnesium 1.5 mg/dL (1.5-2.4)
[2021-06-10 13:44] LABS: Albumin 3.9 g/dL (3.80-4.90); Albumin/Globulin Ratio 2.05 (1.60-3.17); Anion Gap 7.8 mmol/L (4.00-12.00); BUN/Creat Ratio 14.29 Ratio (12.00-20.00); Calcium 8.8 mg/dL (8.7-10.3); Carbon Dioxide 24.2 mmol/L (21.6-31.8); Globulin 1.9 g/dL (1.6-3.3); Non-African American GFR(CKD) 114.8 (60.0-200.0); Potassium 4.1 mmol/L (3.5-5.5); Total Bilirubin 0.8 mg/dL (0.3-1.2); Total Protein 5.8 g/dL (6.2-8.2)
--- NOTE | 2021-06-10 16:23 | P.DS ---
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 Patient presented to the emergency department with a chief complaint of alcohol withdrawal. Per ED documentation patient reported feeling anxious, nauseous, tremors, and was vomiting feeling as though he was going through withdrawal. Patient was seen and fully evaluated in the ED. His blood alcohol level was 259 and concerns of alcoholic ketoacidosis with normal anion gap acidosis as evidenced by chloride of 110, carbon dioxide 17, and anion gap of 17. CBC revealed macrocytic macrochromic polycythemia with hemoglobin of 18.4, MCV 105.7, and MCH of 37.1. Patient reported drinking at least a fifth of vodka daily with last drink reported being last night. Patient states he does not want help or to be placed in a rehab because he does not have a problem and knows how to quit if he wants to. In addition to alcohol abuse patient reports smoking one pack of cigarettes daily as well as daily marijuana use. Patient denies having any other drug use. Patient also denies having any other complaints including headache, lightheadedness, dizziness, chest pain, palpitations, shortness of breath, or experiencing any numbness/tingling/weakness in extremities. Patient denies having any recent injuries or falls. Patient was initially agitated and argumentative at times and using foul language and security was called to bedside. Patient was given Ativan overnight and his symptoms of agitation seemed to be improved. Patient was seen and evaluated at bedside this morning and states that he has sobered up and is going home. Patient declining assistance with drug and alcohol rehab placement inpatient or outpatient. Patient medically stable at this time, clinically sober and is stable for discharge home. Patient encouraged on the importance of alcohol cessation and risks of continued use. Physical exam: Vital signs reviewed and stable. General: Nontoxic, no distress and appears stated age. Derm: Skin warm and dry, normal coloration for ethnicity. Head: Atraumatic, normocephalic and symmetric. Eyes: EOMs intact, no lid lag, and anicteric sclera Mouth: no lip lesions, mucus membranes moist Cardiovascular: Tachycardic rate with regular rhythm with normal S1S2, no murmur, positive posterior tibial pulses bilaterally, and cap refill < 2 sec onds. Lungs: Respirations even, regular, and unlabored on room air. Lungs CTA bilaterally, no rhonchi, no rales, no wheezing, and no accessory muscle usage. Abdominal: soft, nontender to palpation, no guarding, no appreciable organomegaly Ext: ROM intact. No gross muscle atrophy, no edema, no contractures Neuro: Speech clear, face symmetrical and CN II-XII grossly intact with no noted focal neuro deficits Psych: Alert and oriented to person, place, time, and situation. Patient calm and cooperative this morning. A total of 45 minutes of time were spent preparing this complex discharge s florestanisha. Patient Condition at Discharge: Stable Plan - Discharge Summary Discharge Rx Participant: Yes New Discharge Prescriptions: New Folic Acid 1 mg PO DAILY 30 Days #30 tab Thiamine [Vitamin B-1] 100 mg PO BID-W/MEALS 30 Days #60 tab Multivitamins, Thera [Multivitamin (formulary)] 1 each PO DAILY 30 Days #30 tab Discharge Medication List Folic Acid 1 mg PO DAILY 30 Days #30 tab 06/10/21 [Rx] Multivitamins, Thera [Multivitamin (formulary)] 1 each PO DAILY 30 Days #30 tab 06/10/21 [Rx] Thiamine [Vitamin B-1] 100 mg PO BID-W/MEALS 30 Days #60 tab 06/10/21 [Rx] Follow up Appointment(s)/Referral(s): Carlos A Jamil MD [Primary Care Provider] - 1-2 days Activity/Diet/Wound Care/Special Instructions: Activity: As tolerated Diet: Regular diet Special Instructions: It is strongly advised that you avoid all alcohol intake and stop drinking. Continued drinking of alcohol/liquor can lead to a lifelong of deteriorating health defects and comorbidities up to and including . As we discussed, there are many outpatient and inpatient programs available to support and assist you on your journey to stopping drug and alcohol intake if you choose. Discharge Disposition: HOME SELF-CARE <Vanessa Meza - Last Filed: 06/10/21 18:49> Providers Date of admission: 06/09/21 15:09 Attending physician: Vanessa Meza DO Primary care physician: Carlos A Jamil MD Hospital Course: Curt Falcon NP rendered care for this patient independently, reviewed the findings and plan as documented in the note above. I did not physically speak with or examine the patient on this date.
== END 2021-06-10 09:27 | disposition home or self-care (01) ==
LOC: EC 11:32 → 6NMEDSUR 15:09
PROVIDERS: ADMIT Internal Medicine; ATTEND Internal Medicine
DX: F10.239 Alcohol dependence with withdrawal, unspecified (principal); F10.229 Alcohol dependence with intoxication, unspecified; Y90.8 Blood alcohol level of 240 mg/100 ml or more; E86.0 Dehydration; D75.1 Secondary polycythemia; E87.2 Acidosis; F17.210 Nicotine dependence, cigarettes, uncomplicated; F12.90 Cannabis use, unspecified, uncomplicated; F31.9 Bipolar disorder, unspecified; Z71.41 Alcohol abuse counseling and surveillance of alcoholic; Z71.6 Tobacco abuse counseling; Z81.1 Family history of alcohol abuse and dependence; Z80.9 Family history of malignant neoplasm, unspecified
CPT/HCPCS: 99285; 96361 ×2; 96372; 96374; 96375; 36415; 80053 ×2; 83735 ×2; 85025; 85027; 81003; 80306; G0378 ×2; G0480; J2060; J3411; J2405 ×2; 80320; 96376

== ENCOUNTER 2022-04-02 07:30 | Inpatient (IN) | payer OTHER ==
[2022-04-02] MEDS ORDERED: DIAZEPAM 5 MG/ML 2 ML INJ IVP STA ×2 (07:50→10:08)
[2022-04-02] MEDS ORDERED: SODIUM CHLORIDE 0.9% 1,000 ML IV STA (07:50)
[2022-04-02] MEDS ORDERED: ONDANSETRON 4 MG/2 ML VIAL IVP STA (07:50)
--- NOTE | 2022-04-02 07:57 | ED ---
Alcohol HPI - General Chief Complaint: Alcohol Stated Complaint: Withdrawl Time Seen by Provider: 04/02/22 07:35 Source: patient, RN notes reviewed Mode of arrival: ambulatory Limitations: no limitations - History of Present Illness Initial Comments: 46-year-old male presents emergency from with chief complaint of alcohol withdrawal. Patient states that he drinks at least 1/5 of alcohol daily. Patient states that he had his last finger on 3 PM yesterday. Patient states started having severe shakes, nausea vomiting states been vomiting throughout t he night. denies any current hallucinations. Patient states that he has quit in the past and is trying to successfully quit at this time. Dies any localized abdominal pain no significant headache blurred vision or any focal weakness. - Related Data Home Medications Medication Instructions Recorded Confirmed No Known Home Medications 04/02/22 04/02/22 Allergies Allergy/AdvReac Type Severity Reaction Status Date / Time No Known Allergies Allergy Verified 04/02/22 09:04 Review of Systems ROS Statement: Those systems with pertinent positive or pertinent negative responses have been documented in the HPI. ROS Other: All systems not noted in ROS Statement are negative. Past Medical History Past Medical History: No Reported History, Musculoskeletal Disorder Additional Past Medical History / Comment(s): multiple orthopedic injuries bipolar etoh abuse History of Any Multi-Drug Resistant Organisms: None Reported Past Surgical History: Orthopedic Surgery Additional Past Surgical History / Comment(s): hand Past Psychological History: Bipolar, Depression Smoking Status: Current every day smoker Past Alcohol Use History: Abuse, Daily, Heavy Past Drug Use History: Marijuana - Past Family History Father Family Medical History: Cancer Additional Family Medical History / Comment(s): ETOH Mother Family Medical History: No Reported History General Exam Limitations: no limitations General appearance: alert, in no apparent distress, other (Patient is tremulous) Head exam: Present: atraumatic, normocephalic, normal inspection Eye exam: Present: normal appearance, PERRL, EOMI. Absent: scleral icterus, conjunctival injection, periorbital swelling ENT exam: Present: normal exam, normal oropharynx, mucous membranes moist Neck exam: Present: normal inspection, full ROM. Absent: tenderness, meningismus, lymphadenopathy Respiratory exam: Present: normal lung sounds bilaterally. Absent: respiratory distress, wheezes, rales, rhonchi, stridor Cardiovascular Exam: Present: regular rate, normal rhythm, normal heart sounds. Absent: systolic murmur, diastolic murmur, rubs, gallop, clicks GI/Abdominal exam: Present: soft, tenderness (Minimal), normal bowel sounds. Absent: distended, guarding, rebound, rigid Back exam: Absent: CVA tenderness (R), CVA tenderness (L) Neurological exam: Present: alert, oriented X3 Skin exam: Present: warm, dry, intact, normal color. Absent: rash Course Vital Signs 04/02/22 04/02/22 04/02/22 07:32 08:40 10:14 Temperature 97.2 F L Pulse Rate 71 64 72 Respiratory 16 18 18 Rate Blood Pressure 145/94 129/82 130/85 O2 Sat by Pulse 95 95 96 Oximetry Medical Decision Making - Medical Decision Making Patient made it for alcohol withdrawal patient placed on CIWA and benzodiazepines. - Lab Data Result diagrams: 04/02/22 07:52 04/02/22 07:52 Lab Results 04/02/22 04/02/22 Range/Units 07:52 07:52 WBC 16.4 H (3.8-10.6) k/uL RBC 4.34 (4.30-5.90) m/uL Hgb 16.7 (13.0-17.5) gm/dL Hct 47.1 (39.0-53.0) % MCV 108.5 H (80.0-100.0) fL MCH 38.5 H (25.0-35.0) pg MCHC 35.5 (31.0-37.0) g/dL RDW 12.4 (11.5-15.5) % Plt Count 313 (150-450) k/uL MPV 7.2 Neutrophils % 87 % Lymphocytes % 8 % Monocytes % 4 % Eosinophils % 1 % Basophils % 1 % Neutrophils # 14.3 H (1.3-7.7) k/uL Lymphocytes # 1.2 (1.0-4.8) k/uL Monocytes # 0.6 (0-1.0) k/uL Eosinophils # 0.1 (0-0.7) k/uL Basophils # 0.1 (0-0.2) k/uL Macrocytosis Moderate Sodium 141 (137-145) mmol/L Potassium 4.2 (3.5-5.1) mmol/L Chloride 105 (98-107) mmol/L Carbon Dioxide 23 (22-30) mmol/L Anion Gap 13 mmol/L BUN 14 (9-20) mg/dL Creatinine 0.67 (0.66-1.25) mg/dL Est GFR (CKD-EPI)AfAm >90 (>60 ml/min/1.73 sqM) Est GFR (CKD-EPI)NonAf >90 (>60 ml/min/1.73 sqM) Glucose 144 H (74-99) mg/dL Calcium 9.4 (8.4-10.2) mg/dL Magnesium 1.3 L (1.6-2.3) mg/dL Total Bilirubin 1.4 H (0.2-1.3) mg/dL AST 49 (17-59) U/L ALT 26 (4-49) U/L Alkaline Phosphatase 83 (38-126) U/L Total Protein 7.7 (6.3-8.2) g/dL Albumin 4.8 (3.5-5.0) g/dL Lipase 83 (23-300) U/L Serum Alcohol <10 mg/dL Disposition Clinical Impression: Alcohol withdrawal syndrome, ETOH abuse, Hypomagnesemia Disposition: ADMITTED IP TO THIS HOSP Condition: Fair Referrals: Carlos A Jamil MD [Primary Care Provider] - 1-2 days Time of Disposition: 10:23
[2022-04-02] MEDS: THIAMINE 200 MG in SODIUM CHLORIDE 0.9% 100 ML IVPB STA ×2 (07:59→08:14)
[2022-04-02 08:11] LABS: Basophils # (A) 0.1 k/uL (0-0.2); Basophils % (A) 1 %; Eosinophils # (A) 0.1 k/uL (0-0.7); Eosinophils % (A) 1 %; HCT 47.1 % (39.0-53.0); HGB 16.7 gm/dL (13.0-17.5); Lymphocytes # (A) 1.2 k/uL (1.0-4.8); Lymphocytes % (A) 8 %; MCH 38.5 pg (25.0-35.0); MCHC 35.5 g/dL (31.0-37.0); MCV 108.5 fL (80.0-100.0); Macrocytosis Moderate; Mean Platelet Volume 7.2; Monocytes # (A) 0.6 k/uL (0-1.0); Monocytes % (A) 4 %; Neutrophils # (A) 14.3 k/uL (1.3-7.7); Neutrophils % (A) 87 %; Platelet Count 313 k/uL (150-450); RBC 4.34 m/uL (4.30-5.90); RDW 12.4 % (11.5-15.5); WBC 16.4 k/uL (3.8-10.6)
[2022-04-02 08:27] LABS: ALT 26 U/L (4-49); AST 49 U/L (17-59); African American GFR (CKD) >90 (>60 ml/min/1.73 sqM); Albumin 4.8 g/dL (3.5-5.0); Alcohol <10 mg/dL; Alkaline Phosphatase 83 U/L (38-126); Anion Gap 13 mmol/L; Blood Urea Nitrogen 14 mg/dL (9-20); Calcium 9.4 mg/dL (8.4-10.2); Carbon Dioxide 23 mmol/L (22-30); Chloride 105 mmol/L (98-107); Glucose 144 mg/dL (74-99); Lipase 83 U/L (23-300); Magnesium 1.3 mg/dL (1.6-2.3); Non-African American GFR(CKD) >90 (>60 ml/min/1.73 sqM); Potassium 4.2 mmol/L (3.5-5.1); Sodium 141 mmol/L (137-145); Total Bilirubin 1.4 mg/dL (0.2-1.3); Total Protein 7.7 g/dL (6.3-8.2)
[2022-04-02] MEDS ORDERED: MAGNESIUM OXIDE 400 MG TAB PO STA (08:55)
[2022-04-02 10:17] LABS: Appearance,Urine Cloudy (Clear); Bilirubin,Urine Negative (Negative); Blood,Urine Negative (Negative); Color,Urine Orange; Glucose,Urine (UA) Trace (Negative); Ketones,Urine 2+ (Negative); Leukocyte Esterase,Urine Negative (Negative); Mucus,Urine Many /hpf; Nitrite,Urine Negative (Negative); PH, Urine 6.5 (5.0-8.0); Protein,Urine 2+ (Negative); Specific Gravity,Urine 1.036 (1.001-1.035); Squamous Epithelial Cell,Urine 2 /hpf (0-4); WBC,Urine 7 /hpf (0-5)
[2022-04-02] MEDS ORDERED: ONDANSETRON 4 MG/2 ML VIAL IVP PRN (10:23)
[2022-04-02] MEDS ORDERED: NALOXONE 0.4 MG/ML 1 ML VIAL IV PRN ×2 (10:23→13:40)
[2022-04-02] MEDS ORDERED: chlordiazePOXIDE 25 MG CAP PO PRN ×3 (10:25)
[2022-04-02] MEDS: 1: THIAMINE 100 MG, FOLIC ACID 1 MG in SODIUM CHLORIDE 0.9% 1,000 ML 2: SODIUM CHLORIDE IVPB SCH (11:49)
--- NOTE | 2022-04-02 13:40 | P.HPIM ---
History of Present Illness H&P Date: 04/02/22 Chief Complaint: etoh abuse 46-year-old male with history of alcoholism who presented to the emergency department because he is trying to become sober. His last drink was yesterday. He drinks 1/5 of liquor each day and has been doing that for the past 5 weeks. Patient states started having severe shakes, nausea vomiting. Denies any hallucinations. Prior to 5 weeks he was sober for many years according to patient. Patient states that he has quit in the past and is trying to successfully quit at this time. Vital signs in the emergency department were stable. Laboratory evaluation in the emergency department revealed leukocytosis with WBC count of 16.4, magnesium 1.3, bilirubin 1.4, alcohol level was less than 10. Review of Systems Complete review of system performed, pertinent positives per HPI, otherwise negative Past Medical History Past Medical History: No Reported History Additional Past Medical History / Comment(s): multiple orthopedic injuries, bipolar, etoh abuse (pt states for the past 3 weeks he's been drinking a fifth of vodka per day) History of Any Multi-Drug Resistant Organisms: None Reported Past Surgical History: Hernia Repair, Orthopedic Surgery Additional Past Surgical History / Comment(s): bilateral carpal tunnel surgery Past Anesthesia/Blood Transfusion Reactions: No Reported Reaction Past Psychological History: Bipolar, Depression Additional Psychological History / Comment(s): ETOH abuse Smoking Status: Current every day smoker Past Alcohol Use History: Abuse, Daily, Heavy Additional Past Alcohol Use History / Comment(s): 5th/day of vodka Past Drug Use History: Marijuana - Past Family History Father Family Medical History: Cancer Additional Family Medical History / Comment(s): Lymphoma, ETOH Mother Family Medical History: No Reported History Medications and Allergies Home Medications Medication Instructions Recorded Confirmed Type No Known Home Medications 04/02/22 04/02/22 History Allergies Allergy/AdvReac Type Severity Reaction Status Date / Time No Known Allergies Allergy Verified 04/02/22 09:04 Physical Exam Vitals: Vital Signs Temp Pulse Pulse Resp BP BP Pulse Ox 04/02/22 12:57 98.3 F 91 22 137/78 93 L 04/02/22 10:14 72 18 130/85 96 04/02/22 08:40 64 18 129/82 95 04/02/22 07:32 97.2 F L 71 16 145/94 95 Intake and Output 04/01/22 04/02/22 04/02/22 22:59 06:59 14:59 Other: Weight 58.967 kg Constitutional: No acute distress, conversant, pleasant Eyes:Anicteric sclerae, moist conjunctiva, no lid-lag, PERRLA, ENMT: Oropharynx clear, no erythema, exudates Neck: Supple, FROM, no masses, or JVD, No carotid bruits, No thyromegaly Lungs: Clear to auscultation, Clear to percussion, Normal respiratory effort, no accessory muscle use Cardiovascular: Heart regular in rate and rhythm, No murmurs, gallops, or rubs, No peripheral edema Abdominal: Soft, Nontender, no guarding, rebound or rigidity, Normoactive bowel sounds, No hepatomegaly, No splenomegaly, No palpable mass Skin: Normal temperature, tone, texture, turgor, no induration, No subcutaneous nodules, No rash, lesions, No ulcers Extremities: No digital cyanosis, No clubbing, Pedal pulses intact and symmetrical, Radial pulses intact and symmetrical, No calf tenderness Psychiatric: Alert and oriented to person, place and time, appropriate affect, intact judgement Neuro: Bilateral tremors. Muscles Strength 5/5 in all 4 extremities, Sensation to light touch grossly present throughout, Cranial nerves II-XII grossly intact, no focal sensory deficits Results CBC & Chem 7: 04/02/22 07:52 04/02/22 07:52 Labs: Abnormal Lab Results - Last 24 Hours (Table) 04/02/22 04/02/22 04/02/22 Range/Units 07:52 07:52 07:52 WBC 16.4 H (3.8-10.6) k/uL MCV 108.5 H (80.0-100.0) fL MCH 38.5 H (25.0-35.0) pg Neutrophils # 14.3 H (1.3-7.7) k/uL Glucose 144 H (74-99) mg/dL Magnesium 1.3 L (1.6-2.3) mg/dL Total Bilirubin 1.4 H (0.2-1.3) mg/dL Ur Specific [place] 1.036 H (1.001-1.035) Urine Protein 2+ H (Negative) Urine Glucose (UA) Trace H (Negative) Urine Ketones 2+ H (Negative) Urine WBC 7 H (0-5) /hpf Urine Mucus Many H (None) /hpf Thrombosis Risk Factor Assmnt - Choose All That Apply Each Factor Represents 1 point: Age 41-60 years Thrombosis Risk Factor Assessment Total Risk Factor Score: 1 Thrombosis Risk Factor Assessment Level: Low Risk Assessment and Plan Plan: ETOH abuse now with withdrawal IV fluids Thiamine, MVT and folate ETOH withdrawal protocol, librium Hypomagnesemia Replace, follow in a.m. Admit to inpatient expected length of stay more than 2 midnights..
[2022-04-02] MEDS: MAGNESIUM SULFATE-D5W PMX 1 GM in DEXTROSE/WATER 1 100ML.BAG IVPB SCH ×2 (13:51→15:46)
[2022-04-02] MEDS: chlordiazePOXIDE 25 MG CAP PO PRN (15:45)
[2022-04-02] MEDS: SODIUM CHLORIDE 0.9% 1,000 ML IV SCH (15:48)
[2022-04-03] MEDS: chlordiazePOXIDE 25 MG CAP PO PRN (01:02)
[2022-04-03] MEDS: 1: THIAMINE 100 MG, FOLIC ACID 1 MG in SODIUM CHLORIDE 0.9% 1,000 ML 2: SODIUM CHLORIDE IVPB SCH ×2 (04:38→04:49)
[2022-04-03] MEDS: SODIUM CHLORIDE 0.9% 1,000 ML IV SCH (04:48)
[2022-04-03 05:18] VITALS: BP 119/77; PULSE 53; RESP 16; TEMP 97.7
[2022-04-03 11:11] LABS: HCT 42.1 % (39.6-50.0); HGB 14.7 g/dL (13.0-17.0); MCH 37.2 pg (27.0-32.0); MCHC 34.9 g/dL (32.0-37.0); MCV 106.6 fL (80.0-97.0); Mean Platelet Volume 10.1 fL (9.5-12.2); NRBC Per 100 WBC 0 /100 WBCS (0.0-0.0); Platelet Count 181 X 10*3/uL (140-440); RBC 3.95 X 10*6/uL (4.40-5.60); RDW 12.1 % (11.5-14.5); WBC 4.78 X 10*3/uL (4.50-10.00)
[2022-04-03 11:19] LABS: Albumin/Globulin Ratio 1.86 (1.60-3.17); Anion Gap 11.8 mmol/L (10.00-18.00); BUN/Creat Ratio 14.26 Ratio (12.00-20.00); Blood Urea Nitrogen 9.6 mg/dL (9.0-27.0); Calcium 8.8 mg/dL (8.7-10.3); Carbon Dioxide 21.6 mmol/L (20.0-27.5); Globulin 2.1 g/dL (1.6-3.3); Magnesium 2.2 mg/dL (1.5-2.4); Non-African American GFR(CKD) 115.6 (60.0-200.0); Phosphorus 2.3 mg/dL (2.4-5.1); Potassium 4.5 mmol/L (3.5-5.5); Total Bilirubin 1.1 mg/dL (0.30-1.20); Total Protein 6.1 g/dL (6.2-8.2)
[2022-04-03 11:47] LABS: Basophils # (A) 0.02 X 10*3/uL (0.00-0.10); Basophils % (A) 0.4 %; Eosinophils # (A) 0.15 X 10*3/uL (0.04-0.35); Eosinophils % (A) 3.1 %; Immature Grans, Automated 0.4 %; Monocytes % (A) 10.5 %; Neutrophils # (A) 2.99 X 10*3/uL (1.80-7.70); Neutrophils % (A) 62.6 %
--- NOTE | 2022-04-03 14:09 | P.DS ---
Providers Date of admission: 04/02/22 10:21 Expected date of discharge: 04/03/22 Attending physician: January Sun MD Primary care physician: Carlos A Jamil MD Hospital Course: Discharge Diagnosis: Alcohol withdrawal Hypomagnesemia Hospital Course: 46-year-old male with history of alcoholism who presented to the emergency department because he is trying to become sober. His last drink was yesterday. He drinks 1/5 of liquor each day and has been doing that for the past 5 weeks. Patient states started having severe shakes, nausea vomiting. Denies any buckner ucinations. Prior to 5 weeks he was sober for many years according to patient. Patient states that he has quit in the past and is trying to successfully quit at this time. Vital signs in the emergency department were stable. Laboratory evaluation in the emergency department revealed leukocytosis with WBC count of 16.4, magnesium 1.3, bilirubin 1.4, alcohol level was less than 10. Patient was started on the CIWA. The following day patient told the nurse that he had issues with his kids at home and more importantly been sitting around in a hospital bed waiting around. Patient did not want to wait to be seen by Dr. Patient left AGAINST MEDICAL ADVICE Patient was not seen on day of discharge A total of [5] minutes of time were spent preparing this complex discharge summary . Patient Condition at Discharge: Good Plan - Discharge Summary New Discharge Prescriptions: No Action No Known Home Medications Discharge Medication List No Known Home Medications 04/02/22 [History] Follow up Appointment(s)/Referral(s): Carlos A Jamil MD [Primary Care Provider] - 1-2 days
== END 2022-04-03 09:51 | disposition left against medical advice (07) | DRG 894 ==
LOC: EC 07:30 → 5NMEDONC 10:21
PROVIDERS: ADMIT Internal Medicine; ATTEND Internal Medicine
PROC: HZ2ZZZZ Detoxification Services for Substance Abuse Treatment (ICD-10-PCS; principal; 2022-04-02)
DX: F10.139 Alcohol abuse with withdrawal, unspecified (principal); F17.210 Nicotine dependence, cigarettes, uncomplicated; F32.A Depression, unspecified; E83.42 Hypomagnesemia; D72.829 Elevated white blood cell count, unspecified; Z53.29 Procedure and treatment not carried out because of patient's decision for other reasons; Z80.7 Family history of other malignant neoplasms of lymphoid, hematopoietic and related tissues; Y90.0 Blood alcohol level of less than 20 mg/100 ml
CPT/HCPCS: 36415; 80053; 80320; 81001; 83690; 83735; 84100; 85025; 96365; 96375; 96376; 99285

== ENCOUNTER 2022-04-10 07:51 | Emergency (ER) | payer OTHER ==
[2022-04-10 08:01] VITALS: BP 145/102; PULSE 86; RESP 18; TEMP 97.9
[2022-04-10] MEDS ORDERED: SODIUM CHLORIDE 0.9% 1,000 ML IV ONE (08:10)
[2022-04-10] MEDS ORDERED: LORazepam 2 MG/ML INJ IV STA (08:10)
[2022-04-10] MEDS ORDERED: SODIUM CHLORIDE 0.9% 500 ML 500 ML IV ONE (08:10)
[2022-04-10] MEDS ORDERED: ONDANSETRON 4 MG/2 ML VIAL IVP STA (08:11)
--- NOTE | 2022-04-10 08:23 | ED ---
General Adult HPI - General Chief complaint: Alcohol Stated complaint: alcohol withdrawal Time Seen by Provider: 04/10/22 08:00 Source: patient, RN notes reviewed, old records reviewed Mode of arrival: ambulatory Limitations: no limitations - History of Present Illness Initial comments: This is a 46-year-old male presents emergency Department stating he wants help for alcoholism. Patient states he is willing to go to rehab. Patient states he last drank last night at 10:00. Patient states he vomited once this morning he started to get a little bit shaky so he decided to come to the emergency department. Patient states he is willing to go to rehabilitation today as long as every also looks okay medically. Patient denies any chest pain difficult breathing shortest breath per patient any recent fever chills or cough per patient denies any abdominal pain. Patient denies any fall or trauma. - Related Data Home Medications Medication Instructions Recorded Confirmed No Known Home Medications 04/02/22 04/10/22 Allergies Allergy/AdvReac Type Severity Reaction Status Date / Time No Known Allergies Allergy Verified 04/10/22 08:29 Review of Systems ROS Statement: Those systems with pertinent positive or pertinent negative responses have been documented in the HPI. ROS Other: All systems not noted in ROS Statement are negative. Past Medical History Past Medical History: No Reported History Additional Past Medical History / Comment(s): multiple orthopedic injuries, bipolar, etoh abuse History of Any Multi-Drug Resistant Organisms: None Reported Past Surgical History: Hernia Repair, Orthopedic Surgery Additional Past Surgical History / Comment(s): bilateral carpal tunnel surgery Past Anesthesia/Blood Transfusion Reactions: No Reported Reaction Past Psychological History: Bipolar, Depression Smoking Status: Current every day smoker Past Alcohol Use History: Abuse, Daily, Heavy Past Drug Use History: Marijuana - Past Family History Father Family Medical History: Cancer Additional Family Medical History / Comment(s): Lymphoma, ETOH Mother Family Medical History: No Reported History General Exam - General Exam Comments Initial Comments: GENERAL: Patient is well-developed and well-nourished. Patient is nontoxic and well- hydrated and is in mild distress. ENT: Neck is soft and supple. No significant lymphadenopathy is noted. Oropharynx is clear. Moist mucous membranes. Neck has full range of motion without eliciting any pain. EYES: The sclera were anicteric and conjunctiva were pink and moist. Extraocular movements were intact and pupils were equal round and reactive to light. Eyelids were unremarkable. PULMONARY: Unlabored respirations. Good breath sounds bilaterally. No audible rales rhonchi or wheezing was noted. CARDIOVASCULAR: There is a regular rate and rhythm without any murmurs gallops or rubs. ABDOMEN: Soft and nontender with normal bowel sounds. SKIN: Skin is clear with no lesions or rashes and otherwise unremarkable. NEUROLOGIC: Patient is alert and oriented x3. Cranial nerves II through XII are grossly intact. Motor and sensory are also intact. Normal speech, volume and content. Symmetrical smile. MUSCULOSKELETAL: Normal extremities with adequate strength and full range of motion. LYMPHATICS: No significant lymphadenopathy is noted PSYCHIATRIC: Normal psychiatric evaluation. Limitations: no limitations Course Vital Signs 04/10/22 07:57 Temperature 97.9 F Pulse Rate 86 Respiratory 18 Rate Blood Pressure 145/102 O2 Sat by Pulse 96 Oximetry Medical Decision Making - Medical Decision Making Patient received Valium in the emergency department as well as a liter and a half of fluid and magnesium Patient is clinically sober - Lab Data Result diagrams: 04/10/22 08:55 04/10/22 08:55 Lab Results 04/10/22 04/10/22 Range/Units 08:55 08:55 WBC 6.9 (3.8-10.6) k/uL RBC 3.95 L (4.30-5.90) m/uL Hgb 15.0 (13.0-17.5) gm/dL Hct 41.9 (39.0-53.0) % MCV 106.1 H (80.0-100.0) fL MCH 38.1 H (25.0-35.0) pg MCHC 35.9 (31.0-37.0) g/dL RDW 12.7 (11.5-15.5) % Plt Count 191 (150-450) k/uL MPV 7.2 Neutrophils % 73 % Lymphocytes % 18 % Monocytes % 5 % Eosinophils % 2 % Basophils % 1 % Neutrophils # 5.0 (1.3-7.7) k/uL Lymphocytes # 1.2 (1.0-4.8) k/uL Monocytes # 0.4 (0-1.0) k/uL Eosinophils # 0.1 (0-0.7) k/uL Basophils # 0.1 (0-0.2) k/uL Macrocytosis Slight Sodium 143 (137-145) mmol/L Potassium 3.9 (3.5-5.1) mmol/L Chloride 105 (98-107) mmol/L Carbon Dioxide 28 (22-30) mmol/L Anion Gap 10 mmol/L BUN 10 (9-20) mg/dL Creatinine 0.61 L (0.66-1.25) mg/dL Est GFR (CKD-EPI)AfAm >90 (>60 ml/min/1.73 sqM) Est GFR (CKD-EPI)NonAf >90 (>60 ml/min/1.73 sqM) Glucose 100 H (74-99) mg/dL Calcium 8.4 (8.4-10.2) mg/dL Magnesium 1.5 L (1.6-2.3) mg/dL Total Bilirubin 0.7 (0.2-1.3) mg/dL AST 288 H (17-59) U/L ALT 157 H (4-49) U/L Alkaline Phosphatase 88 (38-126) U/L Total Protein 7.4 (6.3-8.2) g/dL Albumin 4.5 (3.5-5.0) g/dL Disposition Clinical Impression: Alcohol abuse, Alcohol intoxication Disposition: HOME SELF-CARE Condition: Good Instructions (If sedation given, give patient instructions): Alcohol Intoxication (ED) Additional Instructions: Patient should follow-up with [facility] today. Is patient prescribed a controlled substance at d/c from ED?: No Referrals: Carlos A Jamil MD [Primary Care Provider] - 1-2 days Time of Disposition: 09:56
[2022-04-10] MEDS ORDERED: DIAZEPAM 5 MG/ML 2 ML INJ IVP STA ×2 (08:58→09:40)
[2022-04-10 09:07] LABS: Basophils # (A) 0.1 k/uL (0-0.2); Basophils % (A) 1 %; Eosinophils # (A) 0.1 k/uL (0-0.7); Eosinophils % (A) 2 %; HCT 41.9 % (39.0-53.0); Lymphocytes # (A) 1.2 k/uL (1.0-4.8); Lymphocytes % (A) 18 %; MCH 38.1 pg (25.0-35.0); MCHC 35.9 g/dL (31.0-37.0); MCV 106.1 fL (80.0-100.0); Macrocytosis Slight; Mean Platelet Volume 7.2; Monocytes # (A) 0.4 k/uL (0-1.0); Monocytes % (A) 5 %; Neutrophils % (A) 73 %; Platelet Count 191 k/uL (150-450); RBC 3.95 m/uL (4.30-5.90); RDW 12.7 % (11.5-15.5); WBC 6.9 k/uL (3.8-10.6)
[2022-04-10 09:19] LABS: ALT 157 U/L (4-49); AST 288 U/L (17-59); African American GFR (CKD) >90 (>60 ml/min/1.73 sqM); Albumin 4.5 g/dL (3.5-5.0); Alkaline Phosphatase 88 U/L (38-126); Anion Gap 10 mmol/L; Blood Urea Nitrogen 10 mg/dL (9-20); Calcium 8.4 mg/dL (8.4-10.2); Carbon Dioxide 28 mmol/L (22-30); Chloride 105 mmol/L (98-107); Glucose 100 mg/dL (74-99); Magnesium 1.5 mg/dL (1.6-2.3); Non-African American GFR(CKD) >90 (>60 ml/min/1.73 sqM); Potassium 3.9 mmol/L (3.5-5.1); Sodium 143 mmol/L (137-145); Total Bilirubin 0.7 mg/dL (0.2-1.3); Total Protein 7.4 g/dL (6.3-8.2)
[2022-04-10] MEDS ORDERED: MAGNESIUM SULFATE-D5W PMX 1 GM in DEXTROSE/WATER 1 100ML.BAG IVPB ONE (09:25)
== END 2022-04-10 11:20 | disposition home or self-care (01) ==
LOC: EC 07:51
DX: F10.129 Alcohol abuse with intoxication, unspecified (principal); F17.200 Nicotine dependence, unspecified, uncomplicated; F12.90 Cannabis use, unspecified, uncomplicated; Y90.9 Presence of alcohol in blood, level not specified
CPT/HCPCS: 82075; 36415; 80053; 83735; 85025; 99284; 96365; 96375 ×2; 96376; 96361; J3360; J2405; J3475

== ENCOUNTER 2022-09-17 12:29 | Emergency (ER) | payer OTHER ==
[2022-09-17 12:59] VITALS: BP 126/83; PULSE 100; RESP 16; TEMP 98.6
[2022-09-17] MEDS ORDERED: ORPHENADRINE 30 MG/ML 2 ML VIAL IM STA (15:53)
[2022-09-17] MEDS ORDERED: KETOROLAC 15 MG/ML 1 ML VIAL IM STA (15:53)
--- NOTE | 2022-09-17 15:59 | ED ---
General Adult HPI - General Chief complaint: Neck Pain/Injury Stated complaint: neck pain Time Seen by Provider: 09/17/22 15:42 Source: patient, RN notes reviewed Mode of arrival: ambulatory Limitations: no limitations - History of Present Illness Initial comments: Patient is a pleasant 47-year-old male presenting to the emergency Department with right-sided neck discomfort. Onset of symptoms was a few days ago when he was turning his neck and the car. Patient had sudden discomfort right-sided neck. Discomfort is right lateral neck as well as area between the neck and shoulder. Discomfort does increase with turning his head. No weakness. No headache. No arm weakness or loss of sensation. No history of chronic similar symptoms previously. No direct trauma to the region. Patient also has rash on his scalp that he is question about. Patient states this was from scratching the scalp. Patient denies any significant discomfort with it. - Related Data Previous Rx's Medication Instructions Recorded Cephalexin [Keflex] 500 mg PO QID #40 cap 09/17/22 Cyclobenzaprine [Flexeril] 10 mg PO TID PRN #12 tablet 09/17/22 Ibuprofen [Motrin] 600 mg PO Q6HR PRN #20 tab 09/17/22 Allergies Allergy/AdvReac Type Severity Reaction Status Date / Time No Known Allergies Allergy Verified 09/17/22 12:59 Review of Systems ROS Statement: Those systems with pertinent positive or pertinent negative responses have been documented in the HPI. ROS Other: All systems not noted in ROS Statement are negative. Constitutional: Denies: fever Eyes: Denies: eye pain ENT: Denies: ear pain Respiratory: Denies: cough Cardiovascular: Denies: chest pain Endocrine: Denies: fatigue Gastrointestinal: Denies: abdominal pain Genitourinary: Denies: dysuria Musculoskeletal: Reports: as per HPI. Denies: back pain Skin: Reports: as per HPI Neurological: Denies: headache Past Medical History Past Medical History: No Reported History Additional Past Medical History / Comment(s): multiple orthopedic injuries, bipolar, etoh abuse History of Any Multi-Drug Resistant Organisms: None Reported Past Surgical History: Hernia Repair, Orthopedic Surgery Additional Past Surgical History / Comment(s): bilateral carpal tunnel surgery Past Anesthesia/Blood Transfusion Reactions: No Reported Reaction Past Psychological History: Bipolar, Depression Smoking Status: Current every day smoker Past Alcohol Use History: Abuse, Daily, Heavy Past Drug Use History: Marijuana - Past Family History Father Family Medical History: Cancer Additional Family Medical History / Comment(s): Lymphoma, ETOH Mother Family Medical History: No Reported History General Exam Limitations: no limitations General appearance: alert, in no apparent distress Head exam: Present: normocephalic Eye exam: Present: normal appearance Neck exam: Present: normal inspection, meningismus (Mild tenderness right lateral neck. No bony tenderness) Respiratory exam: Present: normal lung sounds bilaterally Cardiovascular Exam: Present: regular rate, normal rhythm Expanded Peripheral pulses: 2+: Radial (R), Radial (L) GI/Abdominal exam: Present: soft. Absent: tenderness Extremities exam: Present: normal inspection Back exam: Present: tenderness (Right trapezius) Neurological exam: Present: alert, oriented X3, CN II-XII intact. Absent: motor sensory deficit Psychiatric exam: Present: normal affect, normal mood Skin exam: Present: other (Posterior superior scalp with patch of erythema, approximately 5 x 6 cm. There is some eschar formation. Nontender. No vesicular lesions) Course Vital Signs 09/17/22 12:57 Temperature 98.6 F Pulse Rate 100 Respiratory 16 Rate Blood Pressure 126/83 O2 Sat by Pulse 96 Oximetry Medical Decision Making - Medical Decision Making Patient advised to use medicated so. Patient will also be a prescription for antibiotics for concern for cellulitis of the scalp. Patient will be provided medications for his neck discomfort. Disposition Clinical Impression: Cervical strain, Cellulitis of scalp Disposition: HOME SELF-CARE Condition: Stable Instructions (If sedation given, give patient instructions): Cervical Sprain (ED), Cellulitis (ED) Additional Instructions: Please do follow-up with your primary care physician in the next one or 2 days for recheck. Prescriptions have been sent to pharmacy. Please use medicated soap such as Selsun Blue her head and shoulders. Return for increased rash, fever, pain, weakness, worsening symptoms or any other concern. Prescriptions: Cyclobenzaprine [Flexeril] 10 mg PO TID PRN #12 tablet PRN Reason: Pain Cephalexin [Keflex] 500 mg PO QID #40 cap Ibuprofen [Motrin] 600 mg PO Q6HR PRN #20 tab PRN Reason: Pain Is patient prescribed a controlled substance at d/c from ED?: No Referrals: Carlos A Jamil MD [Primary Care Provider] - 1-2 days Time of Disposition: 15:58
== END 2022-09-17 16:09 | disposition home or self-care (01) ==
LOC: EC 12:29
DX: S16.1XXA Strain of muscle, fascia and tendon at neck level, initial encounter (principal); L03.811 Cellulitis of head [any part, except face]; F17.200 Nicotine dependence, unspecified, uncomplicated; F12.90 Cannabis use, unspecified, uncomplicated; F31.9 Bipolar disorder, unspecified; X58.XXXA Exposure to other specified factors, initial encounter
CPT/HCPCS: 99283; 96372; J2360; J1885

== ENCOUNTER 2023-05-15 18:05 | Emergency (ER) | payer OTHER ==
[2023-05-15 18:10] VITALS: TEMP 98.7
[2023-05-15] MEDS ORDERED: LIDOCAINE 1% INJ 10MG/ML (20 ML MDV) SQ ONE (18:32)
[2023-05-15] MEDS ORDERED: DIPH,PERTUS(ACELL)TETVAC-LF 0.5 ML VIAL IM ONE (18:32)
--- NOTE | 2023-05-15 19:30 | ED ---
Wound/Laceration HPI - General Chief Complaint: Wound/Laceration Stated Complaint: lt arm laceration Time Seen by Provider: 05/15/23 18:18 Source: patient Mode of arrival: ambulatory Limitations: no limitations - History of Present Illness Initial Comments: 47-year-old male living with chief complaint of laceration to left forearm. Patient states that [id number] and [facility] left forearm. His last tetanus shot was 7 years ago. He has full range of motion and no numbness, tingling, weakness. Laceration is 7 inches long - Related Data Previous Rx's Medication Instructions Recorded Cephalexin [Keflex] 500 mg PO QID #40 cap 09/17/22 Cyclobenzaprine [Flexeril] 10 mg PO TID PRN #12 tablet 09/17/22 Ibuprofen [Motrin] 600 mg PO Q6HR PRN #20 tab 09/17/22 Allergies Allergy/AdvReac Type Severity Reaction Status Date / Time No Known Allergies Allergy Verified 05/15/23 18:10 Review of Systems ROS Statement: Those systems with pertinent positive or pertinent negative responses have been documented in the HPI. ROS Other: All systems not noted in ROS Statement are negative. Past Medical History Past Medical History: Hypertension Additional Past Medical History / Comment(s): multiple orthopedic injuries, bipolar, etoh abuse History of Any Multi-Drug Resistant Organisms: None Reported Past Surgical History: Hernia Repair, Orthopedic Surgery Additional Past Surgical History / Comment(s): bilateral carpal tunnel surgery Past Anesthesia/Blood Transfusion Reactions: No Reported Reaction Past Psychological History: Bipolar, Depression Smoking Status: Current every day smoker Past Alcohol Use History: Abuse, Daily, Heavy Past Drug Use History: Marijuana - Past Family History Father Family Medical History: Cancer Additional Family Medical History / Comment(s): Lymphoma, ETOH Mother Family Medical History: No Reported History General Exam Limitations: no limitations General appearance: alert, in no apparent distress Head exam: Present: atraumatic, normocephalic, normal inspection Eye exam: Present: normal appearance, EOMI Neck exam: Present: normal inspection, full ROM Neurological exam: Present: alert, oriented X3, CN II-XII intact Psychiatric exam: Present: normal affect, normal mood Expanded Type of lesion: Present: laceration (7 inches long left forearm) Course Vital Signs 05/15/23 05/15/23 18:07 19:36 Temperature 98.7 F Pulse Rate 111 H 118 H Respiratory 20 19 Rate Blood Pressure 135/82 130/84 O2 Sat by Pulse 96 93 L Oximetry Procedures - Laceration Laceration #1 Consent Obtained: verbal consent Indication: laceration Site: upper extremity (Left forearm) Size (cm): 14 Description: flap Depth: simple, single layer Anesthetic Used: lidocaine 1%, without epi Anesthesia Technique: local infiltration Pre-repair: wound explored, irrigated extensively Type of Sutures: nylon Size of Sutures: 4-0 Number of Sutures: 18 Technique: simple, interrupted Patient Tolerated Procedure: well Medical Decision Making - Medical Decision Making Was pt. sent in by a medical professional or institution (, DOROTHEA, CELL BIOLOGIST, urgent care, hospital, or fpc...) When possible be specific @ -No Did you speak to anyone other than the patient for history (EMS, parent, family, police, friend...)? What history was obtained from this source @ -No Did you review nursing and triage notes (agree or disagree)? Why? @ -I reviewed and agree with nursing and triage notes Were old charts reviewed (outside hosp., previous admission, EMS record, old EKG, old radiological studies, urgent care reports/EKG's, fpc records)? Report findings @ -No old charts were reviewed Differential Diagnosis (chest pain, altered mental status, abdominal pain women, abdominal pain men, vaginal bleeding, weakness, fever, dyspnea, syncope, headache, dizziness, GI bleed, back pain, seizure, CVA, palpatations, mental health, musculoskeletal)? @ -not applicable EKG interpreted by me (3pts min.). @ -As above X-rays interpreted by me (1pt min.). @ -None done CT interpreted by me (1pt min.). @ -None done U/S interpreted by me (1pt. min.). @ -None done What testing was considered but not performed or refused? (CT, X-rays, U/S, labs)? Why? @ -None What meds were considered but not given or refused? Why? @ -None Did you discuss the management of the patient with other professionals (professionals i.e. DOROTHEA Schneider, CELL BIOLOGIST, lab, RT, psych nurse, social work assistant, commercial painter, teacher, county records management officer, manager case)? Give summary @ -No Was smoking cessation discussed for >3mins.? @ -No Was critical care preformed (if so, how long)? @ -No Were there social determinants of health that impacted care today? How? (Homelessness, low income, unemployed, alcoholism, drug addiction, transpor tation, low edu. Level, literacy, decrease access to med. care, skilled nursing, rehab)? @ -No Was there de-escalation of care discussed even if they declined (Discuss DNR or withdrawal of care, Hospice)? DNR status @ -No What co-morbidities impacted this encounter? (DM, HTN, Smoking, COPD, CAD, Cancer, CVA, ARF, Chemo, Hep., AIDS, mental health diagnosis, sleep apnea, morbid obesity)? @ -None Was patient admitted / discharged? Hospital course, mention meds given and route, prescriptions, significant lab abnormalities, going to OR and other pertinent info. @ -47-year-old male presenting with chief complaint of laceration left forearm. He is neurovascularly intact. Laceration is repaired patient is educated on wound care. Tetanus is updated today. Follow-up with PCP. Report back to ER with any new or worsening symptoms. Discussed return parameters and answered all questions. Patient conveyed verbal understanding and agreed to the plan. I discussed this case in detail with my attending Dr. Ceballos Undiagnosed new problem with uncertain prognosis? @ -No Drug Therapy requiring intensive monitoring for toxicity (Heparin, Nitro, Insulin, Cardizem)? @ -No Were any procedures done? @ -Laceration repair Diagnosis/symptom? @ Laceration Acute, or Chronic, or Acute on Chronic? @ -Acute Uncomplicated (without systemic symptoms) or Complicated (systemic symptoms)? @ -Uncomplicated Side effects of treatment? @ -No Exacerbation, Progression, or Severe Exacerbation? @ -No Poses a threat to life or bodily function? How? (Chest pain, [place], [place], pneumonia, PE, COPD, DKA, ARF, appy, cholecystitis, CVA, Diverticulitis, Homicidal, Suicidal, threat to staff... and all critical care pts) @ -No Disposition Clinical Impression: Laceration Disposition: HOME SELF-CARE Condition: Good Instructions (If sedation given, give patient instructions): Care For Your Stitches (ED), Laceration (ED) Additional Instructions: Follow-up with PCP. Report back to ER with any new or worsening symptoms. Sutures may be removed in 7-10 days. Monitor for signs of infection, including but not limited to redness, swelling, warmth, tenderness, or discharge. Is patient prescribed a controlled substance at d/c from ED?: No Referrals: Carlos A Jamil MD [Primary Care Provider] - 1-2 days Time of Disposition: 19:30
[2023-05-15 19:38] VITALS: BP 130/84; PULSE 118; RESP 19
== END 2023-05-15 19:38 | disposition home or self-care (01) ==
LOC: EC 18:05
DX: S41.112A Laceration without foreign body of left upper arm, initial encounter (principal); I10 Essential (primary) hypertension; Z86.59 Personal history of other mental and behavioral disorders; F17.200 Nicotine dependence, unspecified, uncomplicated; F12.90 Cannabis use, unspecified, uncomplicated; Z23 Encounter for immunization; W26.8XXA Contact with other sharp object(s), not elsewhere classified, initial encounter
CPT/HCPCS: 90715; 99282; 90471; 12005; J2001

== ENCOUNTER 2024-04-14 04:11 | Emergency (ER) | payer OTHER ==
[2024-04-14 04:17] VITALS: PULSE 61; RESP 18
[2024-04-14] MEDS: ONDANSETRON 4 MG/2 ML VIAL IVP STA (04:33)
[2024-04-14] MEDS: SODIUM CHLORIDE 0.9% 1,000 ML IV STA (04:33)
--- NOTE | 2024-04-14 04:44 | ED ---
General Adult HPI - General Chief complaint: Nausea/Vomiting/Diarrhea Stated complaint: Nausea, Vomiting, Sweats Time Seen by Provider: 04/14/24 04:18 Source: patient, RN notes reviewed, old records reviewed Mode of arrival: ambulatory Limitations: no limitations - History of Present Illness Initial comments: 48-year-old male presenting for evaluation of nausea vomiting and diarrhea. Patient states he was not able to sleep secondary to nausea. Patient denies significant abdominal pain. He has several episodes of vomiting and several episodes of diarrhea. He may have caught a stomach bug. He has had chills without measured fever. - Related Data Previous Rx's Medication Instructions Recorded Cephalexin [Keflex] 500 mg PO QID #40 cap 09/17/22 Cyclobenzaprine [Flexeril] 10 mg PO TID PRN #12 tablet 09/17/22 Ibuprofen [Motrin] 600 mg PO Q6HR PRN #20 tab 09/17/22 Ondansetron Odt [Zofran Odt] 4 mg PO Q8HR PRN #10 tab 04/14/24 Allergies Allergy/AdvReac Type Severity Reaction Status Date / Time No Known Allergies Allergy Verified 04/14/24 04:17 Review of Systems ROS Statement: Those systems with pertinent positive or pertinent negative responses have been documented in the HPI. ROS Other: All systems not noted in ROS Statement are negative. Past Medical History Past Medical History: Hypertension Additional Past Medical History / Comment(s): multiple orthopedic injuries, bipolar, etoh abuse History of Any Multi-Drug Resistant Organisms: None Reported Past Surgical History: Hernia Repair, Orthopedic Surgery Additional Past Surgical History / Comment(s): bilateral carpal tunnel surgery Past Anesthesia/Blood Transfusion Reactions: No Reported Reaction Past Psychological History: Bipolar, Depression Smoking Status: Current every day smoker Past Alcohol Use History: Abuse, Daily, Heavy Past Drug Use History: Marijuana - Past Family History Father Family Medical History: Cancer Additional Family Medical History / Comment(s): Lymphoma, ETOH Mother Family Medical History: No Reported History General Exam Limitations: no limitations General appearance: alert, in no apparent distress Head exam: Present: atraumatic, normocephalic Eye exam: Present: normal appearance, PERRL ENT exam: Present: mucous membranes dry Neck exam: Present: normal inspection. Absent: tenderness, meningismus Respiratory exam: Present: normal lung sounds bilaterally. Absent: respiratory distress, wheezes Cardiovascular Exam: Present: regular rate, normal rhythm GI/Abdominal exam: Present: soft. Absent: distended, tenderness, guarding Neurological exam: Present: alert, oriented X3 Psychiatric exam: Present: normal affect, normal mood Skin exam: Present: warm, dry, intact Course Vital Signs 04/14/24 04:15 Temperature 97.8 F Pulse Rate 61 Respiratory 18 Rate Blood Pressure 158/98 O2 Sat by Pulse 98 Oximetry - Reevaluation(s) Reevaluation #1: 04/14/24 05:51 Patient states he will take the bus home. Medical Decision Making - Medical Decision Making Was pt. sent in by a medical professional or institution (, DOROTHEA, WIND TURBINE ELECTRICAL ENGINEER, urgent care, hospital, or shelter...) When possible be specific @ -No Did you speak to anyone other than the patient for history (EMS, parent, family, police, friend...)? What history was obtained from this source @ -No Did you review nursing and triage notes (agree or disagree)? Why? @ -I reviewed and agree with nursing and triage notes Were old charts reviewed (outside hosp., previous admission, EMS record, old EKG, old radiological studies, urgent care reports/EKG's, shelter records)? Report findings @ -No old charts were reviewed Differential Abdominal Pain Men: Appendicitis, cholecystitis, diverticulosis, ischemic bowel, pancreatitis, hepatitis, UTI, gastroenteritis, AAA, incarcerated hernia, bowel obstruction, constipation, inflammatory bowel, hepatitis, peptic ulcer disease, splenic infarction, perforated viscus, testicular torsion, this is not meant to be an all-inclusive list EKG interpreted by me (3pts min.). @ -As above X-rays interpreted by me (1pt min.). @ -None done CT interpreted by me (1pt min.). @ -None done U/S interpreted by me (1pt. min.). @ -None done What testing was considered but not performed or refused? (CT, X-rays, U/S, labs)? Why? @ -None What meds were considered but not given or refused? Why? @ -None Did you discuss the management of the patient with other professionals (professionals i.e. DOROTHEA Schneider, WIND TURBINE ELECTRICAL ENGINEER, lab, RT, psych nurse, protective services social worker, state historical society director, teacher, staff electronic warfare officer, case loader operator)? Give summary @ -No Was smoking cessation discussed for >3mins.? @ -No Was critical care preformed (if so, how long)? @ -No Were there social determinants of health that impacted care today? How? (Homelessness, low income, unemployed, alcoholism, drug addiction, transportation, low edu. Level, literacy, decrease access to med. care, [facility], rehab)? @ -No Was there de-escalation of care discussed even if they declined (Discuss DNR or withdrawal of care, Hospice)? DNR status @ -No What co-morbidities impacted this encounter? (DM, HTN, Smoking, COPD, CAD, Cancer, CVA, ARF, Chemo, Hep., AIDS, mental health diagnosis, sleep apnea, morbid obesity)? @ -None Was patient admitted / discharged? Hospital course, mention meds given and route, prescriptions, significant lab abnormalities, going to OR and other pertinent info. @ -Patient is 48 presenting with nausea vomiting, diarrhea. Chief complaint being nausea. He has no abdominal pain or tenderness. He is afebrile vital signs are stable. Basic laboratory tests are obtained which are unremarkable. Patient given fluids, Zofran and Ativan. Monitored in the emergency department without further vomiting. Continues to have no pain. Patient will monitor symptoms at home and return as needed with abdominal pain, fever, worsening nausea vomiting. Undiagnosed new problem with uncertain prognosis? @ -No Drug Therapy requiring intensive monitoring for toxicity (Heparin, Nitro, Insulin, Cardizem)? @ -No Were any procedures done? @ -No Diagnosis/symptom? @Vomiting diarrhea Acute, or Chronic, or Acute on Chronic? @Acute Uncomplicated (without systemic symptoms) or Complicated (systemic symptoms)? @ -Default Side effects of treatment? @ -No Exacerbation, Progression, or Severe Exacerbation? @ -No Poses a threat to life or bodily function? How? (Chest pain, [place], [place], pneumonia, PE, COPD, DKA, ARF, appy, cholecystitis, CVA, Diverticulitis, Homicidal, Suicidal, threat to staff... and all critical care pts) @ -No - Lab Data Result diagrams: 04/14/24 04:41 04/14/24 04:41 Lab Results 04/14/24 04/14/24 Range/Units 04:41 04:41 WBC 6.0 (3.8-10.6) k/uL RBC 4.15 L (4.30-5.90) m/uL Hgb 14.9 (13.0-17.5) gm/dL Hct 43.5 (39.0-53.0) % MCV 104.8 H (80.0-100.0) fL MCH 35.9 H (25.0-35.0) pg MCHC 34.3 (31.0-37.0) g/dL RDW 12.3 (11.5-15.5) % Plt Count 277 (150-450) k/uL MPV 7.6 Neutrophils % 65 % Lymphocytes % 24 % Monocytes % 7 % Eosinophils % 2 % Basophils % 0 % Neutrophils # 3.9 (1.3-7.7) k/uL Lymphocytes # 1.5 (1.0-4.8) k/uL Monocytes # 0.4 (0-1.0) k/uL Eosinophils # 0.1 (0-0.7) k/uL Basophils # 0.0 (0-0.2) k/uL Macrocytosis Slight Sodium 137 (137-145) mmol/L Potassium 3.9 (3.5-5.1) mmol/L Chloride 108 H (98-107) mmol/L Carbon Dioxide 21 L (22-30) mmol/L Anion Gap 8 mmol/L BUN 8 L (9-20) mg/dL Creatinine 0.61 L (0.66-1.25) mg/dL Est GFR (CKD-EPI)AfAm >90 (>60 ml/min/1.73 sqM) Est GFR (CKD-EPI)NonAf >90 (>60 ml/min/1.73 sqM) Glucose 114 H (74-99) mg/dL Calcium 9.6 (8.4-10.2) mg/dL Total Bilirubin 1.9 H (0.2-1.3) mg/dL AST 29 (17-59) U/L ALT 15 (4-49) U/L Alkaline Phosphatase 75 (38-126) U/L Total Protein 7.0 (6.3-8.2) g/dL Albumin 4.4 (3.5-5.0) g/dL Lipase 60 (23-300) U/L Disposition Clinical Impression: Dehydration, Nausea & vomiting Disposition: HOME SELF-CARE Condition: Fair Instructions (If sedation given, give patient instructions): Acute Nausea and Vomiting (ED), Acute Diarrhea (ED) Prescriptions: Ondansetron Odt [Zofran Odt] 4 mg PO Q8HR PRN #10 tab PRN Reason: Vomiting Is patient prescribed a controlled substance at d/c from ED?: No Referrals: Carlos A Jamil DO [Primary Care Provider] - 1-2 days Time of Disposition: 07:00
[2024-04-14 04:57] LABS: Basophils % (A) 0 %; Eosinophils # (A) 0.1 k/uL (0-0.7); Eosinophils % (A) 2 %; HCT 43.5 % (39.0-53.0); HGB 14.9 gm/dL (13.0-17.5); Lymphocytes # (A) 1.5 k/uL (1.0-4.8); Lymphocytes % (A) 24 %; MCH 35.9 pg (25.0-35.0); MCHC 34.3 g/dL (31.0-37.0); MCV 104.8 fL (80.0-100.0); Macrocytosis Slight; Mean Platelet Volume 7.6; Monocytes # (A) 0.4 k/uL (0-1.0); Monocytes % (A) 7 %; Neutrophils # (A) 3.9 k/uL (1.3-7.7); Neutrophils % (A) 65 %; Platelet Count 277 k/uL (150-450); RBC 4.15 m/uL (4.30-5.90); RDW 12.3 % (11.5-15.5)
[2024-04-14 05:09] LABS: ALT 15 U/L (4-49); AST 29 U/L (17-59); African American GFR (CKD) >90 (>60 ml/min/1.73 sqM); Albumin 4.4 g/dL (3.5-5.0); Alkaline Phosphatase 75 U/L (38-126); Anion Gap 8 mmol/L; Blood Urea Nitrogen 8 mg/dL (9-20); Calcium 9.6 mg/dL (8.4-10.2); Carbon Dioxide 21 mmol/L (22-30); Chloride 108 mmol/L (98-107); Glucose 114 mg/dL (74-99); Lipase 60 U/L (23-300); Non-African American GFR(CKD) >90 (>60 ml/min/1.73 sqM); Potassium 3.9 mmol/L (3.5-5.1); Sodium 137 mmol/L (137-145); Total Bilirubin 1.9 mg/dL (0.2-1.3)
[2024-04-14] MEDS: LORazepam 2 MG/ML INJ IV STA (05:35)
[2024-04-14 06:52] VITALS: BP 140/95; TEMP 98.4
== END 2024-04-14 06:59 | disposition home or self-care (01) ==
LOC: EC 04:11
DX: R11.2 Nausea with vomiting, unspecified (principal); R19.7 Diarrhea, unspecified; E86.0 Dehydration; F17.200 Nicotine dependence, unspecified, uncomplicated
CPT/HCPCS: 36415; 80053; 83690; 85025; 99284; 96374; 96375; 96361 ×2; J2060; J2405

== ENCOUNTER 2024-07-08 07:26 | Emergency (ER) | payer OTHER ==
[2024-07-08 07:29] VITALS: RESP 18
[2024-07-08] MEDS: IBUPROFEN 600 MG TAB PO STA (08:02)
--- NOTE | 2024-07-08 08:18 | ED ---
General Adult HPI - General Chief complaint: Extremity Injury, Upper Stated complaint: R shoulder injury Time Seen by Provider: 07/08/24 07:35 Source: patient, RN notes reviewed, old records reviewed Mode of arrival: ambulatory Limitations: no limitations - History of Present Illness Initial comments: This is a 48-year-old male who presents to the emergency department stating that he heard his right shoulder yesterday when he tried to catch his mother after she tripped on her oxygen tubing. Patient states he did catch his mother but in the process hurt his shoulder. Patient states he has pain on top of the shoulder particularly when he abducts and particularly when it is above horizontal. Patient also has some pain in the scapular region and the back. Patient denies any elbow pain wrist pain. Patient denies any neck pain. Patient denies any other injury - Related Data Previous Rx's Medication Instructions Recorded Cephalexin [Keflex] 500 mg PO QID #40 cap 09/17/22 Cyclobenzaprine [Flexeril] 10 mg PO TID PRN #12 tablet 09/17/22 Ibuprofen [Motrin] 600 mg PO Q6HR PRN #20 tab 09/17/22 Ondansetron Odt [Zofran Odt] 4 mg PO Q8HR PRN #10 tab 04/14/24 Allergies Allergy/AdvReac Type Severity Reaction Status Date / Time No Known Allergies Allergy Verified 07/08/24 07:29 Review of Systems ROS Statement: Those systems with pertinent positive or pertinent negative responses have been documented in the HPI. ROS Other: All systems not noted in ROS Statement are negative. Past Medical History Past Medical History: Hypertension Additional Past Medical History / Comment(s): multiple orthopedic injuries, bipolar, etoh abuse History of Any Multi-Drug Resistant Organisms: None Reported Past Surgical History: Hernia Repair, Orthopedic Surgery Additional Past Surgical History / Comment(s): bilateral carpal tunnel surgery Past Anesthesia/Blood Transfusion Reactions: No Reported Reaction Past Psychological History: Bipolar, Depression Smoking Status: Current every day smoker, Vaper Past Alcohol Use History: Abuse, Daily, Heavy, Occasional Past Drug Use History: Marijuana - Past Family History Father Family Medical History: Cancer Additional Family Medical History / Comment(s): Lymphoma, ETOH Mother Family Medical History: No Reported History General Exam - General Exam Comments Initial Comments: GENERAL Patient is well-developed and well-nourished. Patient is in mild distress. EYES Patient's pupils are equal and round. Extraocular motion is intact SKIN Unremarkable NEURO The patient is alert and oriented A&Ox3 PYSCH Patient has normal interpersonal interactions. MUSCULOSKELETAL Patient has some tenderness in the anterior aspect of the shoulder and just below the spine of the scapula right Limitations: no limitations Course Vital Signs 07/08/24 07:27 Temperature 97.8 F Pulse Rate 95 Respiratory 18 Rate Blood Pressure 169/91 O2 Sat by Pulse 99 Oximetry Medical Decision Making - Medical Decision Making Was pt. sent in by a medical professional or institution (, DOROTHEA, PRECIPITATOR, urgent care, hospital, or prison...) When possible be specific @ -No Did you speak to anyone other than the patient for history (EMS, parent, family, police, friend...)? What history was obtained from this source @ -No Did you review nursing and triage notes (agree or disagree)? Why? @ -I reviewed and agree with nursing and triage notes Were old charts reviewed (outside hosp., previous admission, EMS record, old EKG, old radiological studies, urgent care reports/EKG's, prison records)? Report findings @ -No old charts were reviewed Differential Diagnosis? @ -Differential Musculoskeletal Muscular strain, contusion, ligament sprain, fracture, arthritis, septic arthritis, bursitis, cellulitis, muscle spasm, nerve compression, DVT, arterial occlusion, herpes zoster, electrolyte abnormality, tumor.... This is not meant to be in all inclusive list EKG interpreted by me (3pts min.). @ -As above X-rays interpreted by me (1pt min.). @ -X-ray of the shoulder shows no acute normality CT interpreted by me (1pt min.). @ -None done U/S interpreted by me (1pt. min.). @ -None done What testing was considered but not performed or refused? (CT, X-rays, U/S, labs)? Why? @ -None What meds were considered but not given or refused? Why? @ -None Did you discuss the management of the patient with other professionals (professionals i.e. DOROTHEA Schneider, PRECIPITATOR, lab, RT, psych nurse, social work msw, whip sawyer, teacher, workers' compensation hearings officer, registered nurse hh case manager)? Give summary @ -No Was smoking cessation discussed for >3mins.? @ -No Was critical care preformed (if so, how long)? @ -No Were there social determinants of health that impacted care today? How? (Homelessness, low income, unemployed, alcoholism, drug addiction, transportation, low edu. Level, literacy, decrease access to med. care, [facility], rehab)? @ -No Was there de-escalation of care discussed even if they declined (Discuss DNR or withdrawal of care, Hospice)? DNR status @ -No What co-morbidities impacted this encounter? (DM, HTN, Smoking, COPD, CAD, Cancer, CVA, ARF, Chemo, Hep., AIDS, mental health diagnosis, sleep apnea, morbid obesity)? @ -None Was patient admitted / discharged? Hospital course, mention meds given and route, prescriptions, significant lab abnormalities, going to OR and other pertinent info. @ -Patient was given Motrin in the emergency department. Patient's x-ray showed no acute abnormality. Patient will continue taking Motrin at home and follow-up with orthopedics if symptoms do not improve Undiagnosed new problem with uncertain prognosis? @ -No Drug Therapy requiring intensive monitoring for toxicity (Heparin, Nitro, Insulin, Cardizem)? @ -No Were any procedures done? @ -No Diagnosis/symptom? @ -Shoulder strain Acute, or Chronic, or Acute on Chronic? @ -Acute Uncomplicated (without systemic symptoms) or Complicated (systemic symptoms)? @ -Uncomplicated Side effects of treatment? @ -No Exacerbation, Progression, or Severe Exacerbation? @ -No Poses a threat to life or bodily function? How? (Chest pain, [place], [place], pneumonia, PE, COPD, DKA, ARF, appy, cholecystitis, CVA, Diverticulitis, Homicidal, Suicidal, threat to staff... and all critical care pts) @ -No Disposition Clinical Impression: Strain of shoulder Disposition: HOME SELF-CARE Instructions (If sedation given, give patient instructions): Rotator Cuff Injury (ED) Additional Instructions: Patient should follow-up with orthopedics if shoulder pain does not improve Is patient prescribed a controlled substance at d/c from ED?: No Referrals: Carlos A Jamil DO [Primary Care Provider] - 1-2 days Santos Gibbs MD [STAFF PHYSICIAN] - 1-2 days Time of Disposition: 08:27
--- NOTE | 2024-07-08 08:35 | XR ---
EXAMINATION TYPE: XR shoulder complete RT DATE OF EXAM: 07/08/2024 8:19 AM CLINICAL INDICATION: Male, 48 years old with history of Trauma; [facility] COMPARISON: None TECHNIQUE: XR shoulder complete RT; examined in AP, internally rotated and scapular Y projections. FINDINGS: No evidence of acute osseous pathology, joint dislocation, or soft tissue swelling. The remaining po rtions of the visualized chest are unremarkable. IMPRESSION: No acute osseous pathology. [facility], , 07/08/2024 8:33 AM
[2024-07-08 08:46] VITALS: BP 159/88; PULSE 78; TEMP 98.1
== END 2024-07-08 08:45 | disposition home or self-care (01) ==
LOC: EC 07:26
DX: S46.911A Strain of unspecified muscle, fascia and tendon at shoulder and upper arm level, right arm, initial encounter (principal); F17.290 Nicotine dependence, other tobacco product, uncomplicated; W18.43XA Slipping, tripping and stumbling without falling due to stepping from one level to another, initial encounter
CPT/HCPCS: 99283

== ENCOUNTER 2024-10-28 14:39 | Emergency (ER) | payer OTHER ==
--- NOTE | 2024-10-28 15:20 | ED ---
General Adult HPI - General Chief complaint: Nausea/Vomiting/Diarrhea Stated complaint: Nausea Time Seen by Provider: 10/28/24 15:03 Source: patient, RN notes reviewed, old records reviewed Mode of arrival: ambulatory Limitations: no limitations - History of Present Illness Initial comments: 49-year-old male presenting for evaluation of nausea vomiting and diarrhea. Patient states that his daughter had a similar gastrointestinal illness. Patient symptoms began with diarrhea and he had 1 episode of vomiting which is now predominantly nausea which is severe. There is no further vomiting. There is no fever. No abdominal pain or discomfort. - Related Data Previous Rx's Medication Instructions Recorded Ondansetron Odt [Zofran Odt] 4 mg PO Q8HR PRN #10 tab 10/28/24 Allergies Allergy/AdvReac Type Severity Reaction Status Date / Time No Known Allergies Allergy Verified 10/28/24 16:13 Review of Systems ROS Statement: Those systems with pertinent positive or pertinent negative responses have been documented in the HPI. ROS Other: All systems not noted in ROS Statement are negative. Past Medical History Past Medical History: Hypertension Additional Past Medical History / Comment(s): multiple orthopedic injuries, bipolar, etoh abuse History of Any Multi-Drug Resistant Organisms: None Reported Past Surgical History: Hernia Repair, Orthopedic Surgery Additional Past Surgical History / Comment(s): bilateral carpal tunnel surgery Past Anesthesia/Blood Transfusion Reactions: No Reported Reaction Past Psychological History: Bipolar, Depression Smoking Status: Current every day smoker, Vaper Past Alcohol Use History: Abuse, Daily, Heavy, Occasional Past Drug Use History: Marijuana - Past Family History Father Family Medical History: Cancer Additional Family Medical History / Comment(s): Lymphoma, ETOH Mother Family Medical History: No Reported History General Exam Limitations: no limitations General appearance: alert, anxious Head exam: Present: atraumatic, normocephalic Eye exam: Present: normal appearance, PERRL ENT exam: Present: mucous membranes dry Neck exam: Present: normal inspection. Absent: tenderness, meningismus Respiratory exam: Present: normal lung sounds bilaterally. Absent: respiratory distress, wheezes Cardiovascular Exam: Present: regular rate, normal rhythm GI/Abdominal exam: Present: soft. Absent: distended, tenderness, guarding, rebo und Neurological exam: Present: alert, oriented X3, CN II-XII intact. Absent: motor sensory deficit Psychiatric exam: Present: anxious Skin exam: Present: warm, dry Course Vital Signs 10/28/24 14:57 Temperature 98.5 F Pulse Rate 84 Respiratory 20 Rate Blood Pressure 154/100 O2 Sat by Pulse 98 Oximetry Medical Decision Making - Medical Decision Making Was pt. sent in by a medical professional or institution (DOROTHEA Schneider, BRADLEY LINEBACKER CREWMEMBER, urgent care, hospital, or [place] [facility] [place]...) When possible be specific @ -No Did you speak to anyone other than the patient for history (EMS, parent, family, police, friend...)? What history was obtained from this source @ -No Did you review nursing and triage notes (agree or disagree)? Why? @ -I reviewed and agree with nursing and triage notes Were old charts reviewed (outside hosp., previous admission, EMS record, old EKG, old radiological studies, urgent care reports/EKG's, [place] [facility] [place] records)? Report findings @ -No old charts were reviewed Differential Abdominal Pain Men: Appendicitis, cholecystitis, diverticulosis, ischemic bowel, pancreatitis, hepatitis, UTI, gastroenteritis, AAA, incarcerated hernia, bowel obstruction, constipation, inflammatory bowel, hepatitis, peptic ulcer disease, splenic infarction, perforated viscus, testicular torsion, this is not meant to be an all-inclusive list EKG interpreted by me (3pts min.). @ -Sinus rhythm rate of 77, ME interval 125, QRS duration 85, QTc [address] no [address] segment elevation. X-rays interpreted by me (1pt min.). @ -None done CT interpreted by me (1pt min.). @ -None done U/S interpreted by me (1pt. min.). @ -None done What testing was considered but not performed or refused? (CT, X-rays, U/S, labs)? Why? @ -None What meds were considered but not given or refused? Why? @ -None Did you discuss the management of the patient with other professionals (professionals i.e. DOROTHEA Schneider, [employer]ADLEY [employer]BACKER CREWMEMBER, lab, RT, psych nurse, social sciences instructor, rack puller, teacher, community chest officer, child support case officer)? Give summary @ -No Was smoking cessation discussed for >3mins.? @ -No Was critical care preformed (if so, how long)? @ -No Were there social determinants of health that impacted care today? How? (Homelessness, low income, unemployed, alcoholism, drug addiction, transportation, low edu. Level, literacy, decrease access to med. care, residential, rehab)? @ -No Was there de-escalation of care discussed even if they declined (Discuss DNR or withdrawal of care, Hospice)? DNR status @ -No What co-morbidities impacted this encounter? (DM, HTN, Smoking, COPD, CAD, Cancer, CVA, ARF, Chemo, Hep., AIDS, mental health diagnosis, sleep apnea, morbid obesity)? @ -None Was patient admitted / discharged? Hospital course, mention meds given and route, prescriptions, significant lab abnormalities, going to OR and other pertinent info. @ -49-year-old male with nausea vomiting diarrhea, persistent symptom at this time is nausea both vomiting and diarrhea have stopped. No abdominal pain. No fever. Patient's daughter had similar gastrointestinal symptoms. No vomiting while in the emergency department. Patient given IV fluid and IV Zofran. He feels better on reevaluation. Laboratory testing is unremarkable. Patient prescribed Zofran and will follow-up with primary care. Undiagnosed new problem with uncertain prognosis? @ -No Drug Therapy requiring intensive monitoring for toxicity (Heparin, Nitro, Insulin, Cardizem)? @ -No Were any procedures done? @ -No Diagnosis/symptom? @ -Nausea Acute, or Chronic, or Acute on Chronic? @ -[Acute Uncomplicated (without systemic symptoms) or Complicated (systemic symptoms)? @ -Default Side effects of treatment? @ -No Exacerbation, Progression, or Severe Exacerbation? @ -No Poses a threat to life or bodily function? How? (Chest pain, [place], [place], pneumonia, PE, COPD, DKA, ARF, appy, cholecystitis, CVA, Diverticulitis, Homicidal, Suicidal, threat to staff... and all critical care pts) @ -No - Lab Data Result diagrams: 10/28/24 15:28 10/28/24 15:28 Lab Results 10/28/24 10/28/24 10/28/24 Range/Units 15:28 15:28 15:47 WBC 7.6 (3.8-10.6) k/uL RBC 4.01 L (4.30-5.90) m/uL Hgb 15.4 (13.0-17.5) gm/dL Hct 43.3 (39.0-53.0) % MCV 107.9 H (80.0-100.0) fL MCH 38.4 H (25.0-35.0) pg MCHC 35.6 (31.0-37.0) g/dL RDW 13.3 (11.5-15.5) % Plt Count 294 (150-450) k/uL MPV 7.2 Neutrophils % 81 % Lymphocytes % 13 % Monocytes % 4 % Eosinophils % 1 % Basophils % 0 % Neutrophils # 6.1 (1.3-7.7) k/uL Lymphocytes # 1.0 (1.0-4.8) k/uL Monocytes # 0.3 (0-1.0) k/uL Eosinophils # 0.1 (0-0.7) k/uL Basophils # 0.0 (0-0.2) k/uL Macrocytosis Moderate Sodium 138 (137-145) mmol/L Potassium 4.6 (3.5-5.1) mmol/L Chloride 103 (98-107) mmol/L Carbon Dioxide 25 (22-30) mmol/L Anion Gap 10 mmol/L BUN 9 (9-20) mg/dL Creatinine 0.71 (0.66-1.25) mg/dL Est GFR (CKD-EPI)AfAm >90 (>60 ml/min/1.73 sqM) Est GFR (CKD-EPI)NonAf >90 (>60 ml/min/1.73 sqM) Glucose 87 (74-99) mg/dL Calcium 8.8 (8.4-10.2) mg/dL Magnesium 1.6 (1.6-2.3) mg/dL Total Bilirubin 0.7 (0.2-1.3) mg/dL AST 51 (17-59) U/L ALT 25 (4-49) U/L Alkaline Phosphatase 74 (38-126) U/L Total Protein 7.0 (6.3-8.2) g/dL Albumin 4.3 (3.5-5.0) g/dL Lipase 74 (23-300) U/L Urine Color Colorless Urine Appearance Clear (Clear) Urine pH 7.5 (5.0-8.0) Ur Specific [place] 1.008 (1.001-1.035) Urine Protein Negative (Negative) Urine Glucose (UA) Negative (Negative) Urine Ketones Negative (Negative) Urine Blood Negative (Negative) Urine Nitrite Negative (Negative) Urine Bilirubin Negative (Negative) Urine Urobilinogen <2.0 (<2.0) mg/dL Ur Leukocyte Esterase Negative (Negative) Disposition Clinical Impression: Dehydration, Nausea Disposition: HOME SELF-CARE Condition: Fair Instructions (If sedation given, give patient instructions): Acute Nausea and Vomiting (ED) Prescriptions: Ondansetron Odt [Zofran Odt] 4 mg PO Q8HR PRN #10 tab PRN Reason: Vomiting Is patient prescribed a controlled substance at d/c from ED?: No Referrals: Carlos A Jamil DO [Primary Care Provider] - 1-2 days Time of Disposition: 16:25
[2024-10-28] MEDS: SODIUM CHLORIDE 0.9% 1,000 ML IV STA (15:42)
[2024-10-28] MEDS: ONDANSETRON 4 MG/2 ML VIAL IVP STA (15:42)
[2024-10-28 15:44] LABS: Basophils % (A) 0 %; Eosinophils # (A) 0.1 k/uL (0-0.7); Eosinophils % (A) 1 %; HCT 43.3 % (39.0-53.0); HGB 15.4 gm/dL (13.0-17.5); Lymphocytes % (A) 13 %; MCH 38.4 pg (25.0-35.0); MCHC 35.6 g/dL (31.0-37.0); MCV 107.9 fL (80.0-100.0); Macrocytosis Moderate; Mean Platelet Volume 7.2; Monocytes # (A) 0.3 k/uL (0-1.0); Monocytes % (A) 4 %; Neutrophils # (A) 6.1 k/uL (1.3-7.7); Neutrophils % (A) 81 %; Platelet Count 294 k/uL (150-450); RBC 4.01 m/uL (4.30-5.90); RDW 13.3 % (11.5-15.5); WBC 7.6 k/uL (3.8-10.6)
[2024-10-28 15:57] LABS: ALT 25 U/L (4-49); AST 51 U/L (17-59); African American GFR (CKD) >90 (>60 ml/min/1.73 sqM); Albumin 4.3 g/dL (3.5-5.0); Alkaline Phosphatase 74 U/L (38-126); Anion Gap 10 mmol/L; Blood Urea Nitrogen 9 mg/dL (9-20); Calcium 8.8 mg/dL (8.4-10.2); Carbon Dioxide 25 mmol/L (22-30); Chloride 103 mmol/L (98-107); Glucose 87 mg/dL (74-99); Lipase 74 U/L (23-300); Magnesium 1.6 mg/dL (1.6-2.3); Non-African American GFR(CKD) >90 (>60 ml/min/1.73 sqM); Potassium 4.6 mmol/L (3.5-5.1); Sodium 138 mmol/L (137-145); Total Bilirubin 0.7 mg/dL (0.2-1.3)
[2024-10-28 16:01] LABS: Appearance,Urine Clear (Clear); Bilirubin,Urine Negative (Negative); Blood,Urine Negative (Negative); Color,Urine Colorless; Glucose,Urine (UA) Negative (Negative); Ketones,Urine Negative (Negative); Leukocyte Esterase,Urine Negative (Negative); Nitrite,Urine Negative (Negative); PH, Urine 7.5 (5.0-8.0); Protein,Urine Negative (Negative); Specific Gravity,Urine 1.008 (1.001-1.035); Urobilinogen,Urine <2.0 mg/dL (<2.0)
[2024-10-28 17:14] VITALS: BP 149/92; PULSE 82; RESP 19; TEMP 98.4
== END 2024-10-28 17:15 | disposition home or self-care (01) ==
LOC: EC 14:39
DX: E86.0 Dehydration (principal); R11.2 Nausea with vomiting, unspecified; F17.290 Nicotine dependence, other tobacco product, uncomplicated
CPT/HCPCS: 36415; 80053; 83690; 83735; 85025; 81003; 99284; 96374; 96361; J2405

== ENCOUNTER 2025-01-31 22:13 | Emergency (ER) | payer OTHER ==
[2025-01-31] MEDS: ONDANSETRON 4 MG/2 ML VIAL IVP STA (22:48)
[2025-01-31] MEDS: SODIUM CHLORIDE 0.9% 1,000 ML IV ONE (22:48)
--- NOTE | 2025-01-31 22:51 | ED ---
Abdominal Pain HPI - General Chief Complaint: Abdominal Pain Stated Complaint: Abd pain Time Seen by Provider: 01/31/25 22:26 Source: patient Mode of arrival: ambulatory Limitations: no limitations - History of Present Illness Initial Comments: This patient is 49-year-old man who presents to have evaluation for abdominal pain, nausea and vomiting. The patient's description slightly different than the triage notes. He states that he had initially started feeling pain and vomiting the previous Saturday, and the symptoms lasted for a number of days, re solving probably on Saturday. He states that he had felt well for 1 to 2 days and then had recurrence of symptoms. He indicates the mid abdomen bilaterally. It was an aching pain and he states that it felt like he had done too many sit ups. He also had a number of episodes of vomiting last week this time he is only having dry heaves. He has not had hematemesis or coffee-ground emesis. No change in bowel movements. No change in urination. No pain to the groin or testicles. MD Complaint: abdominal pain Onset/Timin -: days(s) Location: LUQ, RUQ Radiation: none Migration to: no migration Severity: moderate Quality: aching Consistency: constant Improves With: nothing Worsens With: movement Associated Symptoms: nausea, vomiting - Related Data Previous Rx's Medication Instructions Recorded Ondansetron Odt [Zofran Odt] 4 mg PO Q8HR PRN #10 tab 10/28/24 Dicyclomine [Bentyl] 20 mg PO QID PRN #20 tablet 11/20/24 Ondansetron Odt [Zofran Odt] 4 mg PO Q8HR PRN #20 tab 11/20/24 Allergies Allergy/AdvReac Type Severity Reaction Status Date / Time No Known Allergies Allergy Verified 01/31/25 22:21 Review of Systems ROS Statement: Those systems with pertinent positive or pertinent negative responses have been documented in the HPI. ROS Other: All systems not noted in ROS Statement are negative. Constitutional: Denies: fever, chills Respiratory: Denies: cough, dyspnea Cardiovascular: Denies: chest pain, palpitations, edema Gastrointestinal: Reports: as per HPI, abdominal pain, nausea, vomiting. Denies: diarrhea, constipation, hematemesis, melena, hematochezia Genitourinary: Denies: dysuria, hematuria, testicular pain, testicular mass Musculoskeletal: Denies: back pain Skin: Denies: rash Neurological: Denies: headache, weakness, numbness Past Medical History Past Medical History: Hypertension Additional Past Medical History / Comment(s): multiple orthopedic injuries, bipolar, etoh abuse History of Any Multi-Drug Resistant Organisms: None Reported Past Surgical History: Hernia Repair, Orthopedic Surgery Additional Past Surgical History / Comment(s): bilateral carpal tunnel surgery Past Anesthesia/Blood Transfusion Reactions: No Reported Reaction Past Psychological History: Bipolar, Depression Smoking Status: Current every day smoker, Vaper Past Alcohol Use History: Abuse, Daily, Heavy, Occasional Past Drug Use History: Marijuana - Past Family History Father Family Medical History: Cancer Additional Family Medical History / Comment(s): Lymphoma, ETOH Mother Family Medical History: No Reported History General Exam Limitations: no limitations General appearance: alert, in no apparent distress Head exam: Present: atraumatic, normocephalic Eye exam: Present: normal appearance. Absent: scleral icterus, conjunctival injection ENT exam: Present: normal oropharynx Neck exam: Present: normal inspection Respiratory exam: Present: normal lung sounds bilaterally. Absent: respiratory distress, wheezes, rales, rhonchi, stridor, accessory muscle use Cardiovascular Exam: Present: regular rate, normal rhythm, normal heart sounds. Absent: systolic murmur, diastolic murmur, rubs, gallop GI/Abdominal exam: Present: soft. Absent: distended, tenderness, guarding, rebound, rigid, mass, pulsatile mass, hernia Extremities exam: Present: normal inspection, normal capillary refill. Absent: pedal edema, calf tenderness Back exam: Present: normal inspection. Absent: CVA tenderness (R), CVA tenderness (L) Neurological exam: Present: alert Skin exam: Present: warm, dry, intact, normal color. Absent: rash Course Vital Signs 01/31/25 22:18 Temperature 98 F Pulse Rate 94 Respiratory 16 Rate Blood Pressure 142/95 O2 Sat by Pulse 98 Oximetry Medical Decision Making - Lab Data Result diagrams: 01/31/25 22:54 01/31/25 22:54 Lab Results 01/31/25 01/31/25 01/31/25 Range/Units 22:50 22:54 22:54 WBC 6.74 (4.50-10.00) 10*3/uL RBC 3.41 L (4.40-5.60) 10*6/uL Hgb 13.2 (13.0-17.0) g/dL Hct 35.4 L (39.6-50.0) % MCV 103.8 H (80.0-97.0) fL MCH 38.7 H (27.0-32.0) pg MCHC 37.3 H (32.0-37.0) g/dL Plt Count 190 (140-440) 10*3/uL MPV 9.4 L (9.5-12.2) fL Immature Gran % (Auto) 0.3 % Neutrophils % 64.0 % Lymphocytes % 25.2 % Monocytes % 7.7 % Eosinophils % 2.4 % Basophils % 0.4 % Immature Gran # 0.02 (0.00-0.04) 10*3/uL Neutrophils # 4.31 (1.80-7.70) 10*3/uL Lymphocytes # 1.70 (0.90-5.00) 10*3/uL Monocytes # 0.52 (0.20-1.00) 10*3/uL Eosinophils # 0.16 (0.04-0.35) 10*3/uL Basophils # 0.03 (0.00-0.10) 10*3/uL Sodium 137 (137-145) mmol/L Potassium 3.8 (3.5-5.1) mmol/L Chloride 108 H (98-107) mmol/L Carbon Dioxide 22 (22-30) mmol/L Anion Gap 7 mmol/L BUN 10 (9-20) mg/dL Creatinine 0.66 (0.66-1.25) mg/dL Est GFR (CKD-EPI)AfAm >90 (>60 ml/min/1.73 sqM) Est GFR (CKD-EPI)NonAf >90 (>60 ml/min/1.73 sqM) Glucose 97 (74-99) mg/dL Plasma Lactic Acid [place] (0.7-2.0) mmol/L Calcium 9.2 (8.4-10.2) mg/dL Total Bilirubin 0.7 (0.2-1.3) mg/dL AST 94 H (17-59) U/L ALT 75 H (4-49) U/L Alkaline Phosphatase 78 (38-126) U/L Total Protein 6.6 (6.3-8.2) g/dL Albumin 4.0 (3.5-5.0) g/dL Amylase 62 (30-110) U/L Lipase 113 (23-300) U/L Urine Color Yellow Urine Appearance Clear (Clear) Urine pH 5.5 (5.0-8.0) Ur Specific [place] 1.017 (1.001-1.035) Urine Protein Negative (Negative) Urine Glucose (UA) Negative (Negative) Urine Ketones Negative (Negative) Urine Blood Negative (Negative) Urine Nitrite Negative (Negative) Urine Bilirubin Negative (Negative) Urine Urobilinogen <2.0 (<2.0) mg/dL Ur Leukocyte Esterase Negative (Negative) 01/31/25 Range/Units 22:54 WBC (4.50-10.00) 10*3/uL RBC (4.40-5.60) 10*6/uL Hgb (13.0-17.0) g/dL Hct (39.6-50.0) % MCV (80.0-97.0) fL MCH (27.0-32.0) pg MCHC (32.0-37.0) g/dL Plt Count (140-440) 10*3/uL MPV (9.5-12.2) fL Immature Gran % (Auto) % Neutrophils % % Lymphocytes % % Monocytes % % Eosinophils % % Basophils % % Immature Gran # (0.00-0.04) 10*3/uL Neutrophils # (1.80-7.70) 10*3/uL Lymphocytes # (0.90-5.00) 10*3/uL Monocytes # (0.20-1.00) 10*3/uL Eosinophils # (0.04-0.35) 10*3/uL Basophils # (0.00-0.10) 10*3/uL Sodium (137-145) mmol/L Potassium (3.5-5.1) mmol/L Chloride (98-107) mmol/L Carbon Dioxide (22-30) mmol/L Anion Gap mmol/L BUN (9-20) mg/dL Creatinine (0.66-1.25) mg/dL Est GFR (CKD-EPI)AfAm (>60 ml/min/1.73 sqM) Est GFR (CKD-EPI)NonAf (>60 ml/min/1.73 sqM) Glucose (74-99) mg/dL Plasma Lactic Acid [place] 0.6 L (0.7-2.0) mmol/L Calcium (8.4-10.2) mg/dL Total Bilirubin (0.2-1.3) mg/dL AST (17-59) U/L ALT (4-49) U/L Alkaline Phosphatase (38-126) U/L Total Protein (6.3-8.2) g/dL Albumin (3.5-5.0) g/dL Amylase (30-110) U/L Lipase (23-300) U/L Urine Color Urine Appearance (Clear) Urine pH (5.0-8.0) Ur Specific [place] (1.001-1.035) Urine Protein (Negative) Urine Glucose (UA) (Negative) Urine Ketones (Negative) Urine Blood (Negative) Urine Nitrite (Negative) Urine Bilirubin (Negative) Urine Urobilinogen (<2.0) mg/dL Ur Leukocyte Esterase (Negative) Disposition Clinical Impression: Vomiting Disposition: HOME SELF-CARE Condition: Good Instructions (If sedation given, give patient instructions): Acute Nausea and Vomiting (ED) Additional Instructions: As we discussed, your liver enzyme levels are mildly elevated. Avoid drinking any alcohol in the near future, avoid using Tylenol. Have your liver tests rechecked in 4-5 days to ensure that these are not increasing. Return if there is any problem. Is patient prescribed a controlled substance at d/c from ED?: No Referrals: Carlos A Jamil DO [Primary Care Provider] - 1-2 days
[2025-01-31 23:07] LABS: Basophils # (A) 0.03 10*3/uL (0.00-0.10); Basophils % (A) 0.4 %; Eosinophils # (A) 0.16 10*3/uL (0.04-0.35); Eosinophils % (A) 2.4 %; HCT 35.4 % (39.6-50.0); HGB 13.2 g/dL (13.0-17.0); Lymphocytes % (A) 25.2 %; MCH 38.7 pg (27.0-32.0); MCHC 37.3 g/dL (32.0-37.0); MCV 103.8 fL (80.0-97.0); Mean Platelet Volume 9.4 fL (9.5-12.2); Monocytes # (A) 0.52 10*3/uL (0.20-1.00); Monocytes % (A) 7.7 %; Neutrophils # (A) 4.31 10*3/uL (1.80-7.70); Platelet Count 190 10*3/uL (140-440); RBC 3.41 10*6/uL (4.40-5.60); RDW 12.6 % (11.5-14.5); WBC 6.74 10*3/uL (4.50-10.00)
[2025-01-31 23:24] LABS: ALT 75 U/L (4-49); AST 94 U/L (17-59); African American GFR (CKD) >90 (>60 ml/min/1.73 sqM); Alkaline Phosphatase 78 U/L (38-126); Amylase 62 U/L (30-110); Anion Gap 7 mmol/L; Blood Urea Nitrogen 10 mg/dL (9-20); Calcium 9.2 mg/dL (8.4-10.2); Carbon Dioxide 22 mmol/L (22-30); Chloride 108 mmol/L (98-107); Glucose 97 mg/dL (74-99); Lipase 113 U/L (23-300); Non-African American GFR(CKD) >90 (>60 ml/min/1.73 sqM); Potassium 3.8 mmol/L (3.5-5.1); Sodium 137 mmol/L (137-145); Total Bilirubin 0.7 mg/dL (0.2-1.3); Total Protein 6.6 g/dL (6.3-8.2)
[2025-01-31 23:57] LABS: Appearance,Urine Clear (Clear); Bilirubin,Urine Negative (Negative); Blood,Urine Negative (Negative); Color,Urine Yellow; Glucose,Urine (UA) Negative (Negative); Ketones,Urine Negative (Negative); Leukocyte Esterase,Urine Negative (Negative); Nitrite,Urine Negative (Negative); PH, Urine 5.5 (5.0-8.0); Protein,Urine Negative (Negative); Specific Gravity,Urine 1.017 (1.001-1.035); Urobilinogen,Urine <2.0 mg/dL (<2.0)
[2025-02-01 01:02] VITALS: BP 139/89; PULSE 71; RESP 19; TEMP 98.1
== END 2025-02-01 01:06 | disposition home or self-care (01) ==
LOC: EC 22:13
DX: R11.2 Nausea with vomiting, unspecified (principal); F17.290 Nicotine dependence, other tobacco product, uncomplicated
CPT/HCPCS: 36415; 80053; 82150; 83605; 83690; 85025; 81003; 99284; 96374; 96361; J2405

== ENCOUNTER 2025-03-23 01:29 | Emergency (ER) | payer OTHER ==
--- NOTE | 2025-03-23 02:00 | ED ---
Upper Extremity HPI - General Chief Complaint: Extremity Injury, Upper Stated Complaint: right hand pain Time Seen by Provider: 03/23/25 01:38 Source: patient Mode of arrival: ambulatory Limitations: no limitations - History of Present Illness Initial Comments: This patient is a 49-year-old man with history of previous boxer's fracture, who presents with right handed pain after falling. The patient states that he had slipped, lost his balance and fell with his right hand pinned underneath him. He states that he had noticed a little bit of pain and swelling initially. 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 The patient denies sensory loss. No laceration or abrasion. MD Complaint: Injury to:: right, hand Onset/Timin -: hour(s) Other Extremity Injury: Hand: Right Other Injuries: none Handedness: right Place: home Severity scale (1-10): 7 Improves With: none Worsens With: movement of extremity Context: fall Associated Symptoms: denies other symptoms - Related Data Previous Rx's Medication Instructions Recorded Ondansetron Odt [Zofran Odt] 4 mg PO Q8HR PRN #10 tab 10/28/24 Dicyclomine [Bentyl] 20 mg PO QID PRN #20 tablet 11/20/24 Ondansetron Odt [Zofran Odt] 4 mg PO Q8HR PRN #20 tab 11/20/24 Ibuprofen [Motrin] 600 mg PO Q8HR PRN #20 tab 03/23/25 Allergies Allergy/AdvReac Type Severity Reaction Status Date / Time No Known Allergies Allergy Verified 03/23/25 01:34 Review of Systems ROS Statement: Those systems with pertinent positive or pertinent negative responses have been documented in the HPI. ROS Other: All systems not noted in ROS Statement are negative. Musculoskeletal: Reports: as per HPI, joint swelling Skin: Denies: rash, lesions Neurological: Denies: weakness Past Medical History Past Medical History: Hypertension Additional Past Medical History / Comment(s): multiple orthopedic injuries, bipolar, etoh abuse History of Any Multi-Drug Resistant Organisms: None Reported Past Surgical History: Hernia Repair, Orthopedic Surgery Additional Past Surgical History / Comment(s): bilateral carpal tunnel surgery Past Anesthesia/Blood Transfusion Reactions: No Reported Reaction Past Psychological History: Bipolar, Depression Smoking Status: Current every day smoker, Vaper Past Alcohol Use History: Abuse, Daily, Heavy, Occasional Past Drug Use History: Marijuana - Past Family History Father Family Medical History: Cancer Additional Family Medical History / Comment(s): Lymphoma, ETOH Mother Family Medical History: No Reported History General Exam Limitations: no limitations General appearance: alert, in no apparent distress Cardiovascular Exam: Present: other (Normal radial and ulnar pulse. Good capillary refill) Right Elbow exam: Present: normal inspection, full ROM. Absent: tenderness, swelling Forearm Wrist exam: Present: normal inspection, full ROM. Absent: tenderness, s welling Hand Wrist exam: Present: full ROM, tenderness, swelling. Absent: abrasion, laceration, ecchymosis, deformity, crepitus, dislocation Neuro motor exam: Present: wrist extension intact, thumb opposition intact, thumb IP flexion intact, thumb adduction intact, fingers 2-5 abduction intact Neurosensory exam: Present: radial nerve intact, ulnar nerve intact, median nerve intact Vascular: Present: normal capillary refill. Absent: pulse deficit radial art, pulse deficit ulnar art, pulse deficit brachial art Skin exam: Present: warm, dry, intact, normal color. Absent: rash Course Vital Signs 03/23/25 03/23/25 01:32 03:49 Temperature 97.6 F 98.0 F Pulse Rate 68 111 H Respiratory 18 20 Rate Blood Pressure 156/93 138/90 O2 Sat by Pulse 97 97 Oximetry Medical Decision Making - Medical Decision Making The patient had x-ray of the hand that I interpreted as negative for acute fracture, dislocation, foreign body Was pt. sent in by a medical professional or institution (, PA, BOAT ENGINES INSTALLER, urgent care, hospital, or skilled nursing...) When possible be specific @ -[No] Did you speak to anyone other than the patient for history (EMS, parent, family, police, friend...)? What history was obtained from this source @ -[No] Did you review nursing and triage notes (agree or disagree)? Why? @ -[I reviewed and agree with nursing and triage notes] Were old charts reviewed (outside hosp., previous admission, EMS record, old EKG, old radiological studies, urgent care reports/EKG's, skilled nursing records)? Report findings @ -[No old charts were reviewed] Differential Diagnosis (chest pain, altered mental status, abdominal pain women, abdominal pain men, vaginal bleeding, weakness, fever, dyspnea, syncope, headache, dizziness, GI bleed, back pain, seizure, CVA, palpatations, mental health, musculoskeletal)? @ -[MDM musculoskeletal EKG interpreted by me (3pts min.). @ -[As above] X-rays interpreted by me (1pt min.). @ -[I interpreted as above CT interpreted by me (1pt min.). @ -[None done] U/S interpreted by me (1pt. min.). @ -[None done] What testing was considered but not performed or refused? (CT, X-rays, U/S, labs)? Why? @ -[None] What meds were considered but not given or refused? Why? @ -[None] Did you discuss the management of the patient with other professionals (professionals i.e. , PA, BOAT ENGINES INSTALLER, lab, RT, psych nurse, social secretary, user experience designer, teacher, weapons officer naval activity, business case analyst)? Give summary @ -[No] Was smoking cessation discussed for >3mins.? @ -[No] Was critical care preformed (if so, how long)? @ -[No] Were there social determinants of health that impacted care today? How? (Homelessness, low income, unemployed, alcoholism, drug addiction, transportation, low edu. Level, literacy, decrease access to med. care, retirement, rehab)? @ -[No] Was there de-escalation of care discussed even if they declined (Discuss DNR or withdrawal of care, Hospice)? DNR status @ -[No] What co-morbidities impacted this encounter? (DM, HTN, Smoking, COPD, CAD, Cancer, CVA, ARF, Chemo, Hep., AIDS, mental health diagnosis, sleep apnea, morbid obesity)? @ -[Previous boxer fracture Was patient admitted / discharged? Hospital course, mention meds given and route, prescriptions, significant lab abnormalities, going to OR and other pertinent info. @ -[Patient is 49-year-old man with hand pain after fall. The patient's x-ray negative for fracture. We did discuss possibility of occult fracture and need to have repeat x-ray in 6 to 7 days if there is not significant improvement. Discussed appropriate further care and follow-up Undiagnosed new problem with uncertain prognosis? @ -[No] Drug Therapy requiring intensive monitoring for toxicity (Heparin, Nitro, Insulin, Cardizem)? @ -[No] Were any procedures done? @ -[No] Diagnosis/symptom? @ -[Hand contusion Acute, or Chronic, or Acute on Chronic? @ -[Acute Uncomplicated (without systemic symptoms) or Complicated (systemic symptoms)? @ -[Uncomplicated Side effects of treatment? @ -[No] Exacerbation, Progression, or Severe Exacerbation? @ -[No] Poses a threat to life or bodily function? How? (Chest pain, [place], MA, pneumonia, PE, COPD, DKA, ARF, appy, cholecystitis, CVA, Diverticulitis, Homicidal, Suicidal, threat to staff... and all critical care pts) @ -[No] All treatments are based on ideal body weight as in ED triage Disposition Clinical Impression: Hand contusion Disposition: HOME SELF-CARE Condition: Good Instructions (If sedation given, give patient instructions): Contusion in Adults (ED) Prescriptions: Ibuprofen [Motrin] 600 mg PO Q8HR PRN #20 tab PRN Reason: Pain Is patient prescribed a controlled substance at d/c from ED?: No Referrals: Carlos A Jamil DO [Primary Care Provider] - 1-2 days
[2025-03-23] MEDS: IBUPROFEN 600 MG TAB PO STA (02:07)
[2025-03-23 03:51] VITALS: BP 138/90; PULSE 111; RESP 20; TEMP 98
--- NOTE | 2025-03-23 04:21 | XR ---
EXAM: XR Right Hand Complete, 3 or More Views CLINICAL HISTORY: ITS.REASON XR Reason: fall injury TECHNIQUE: Frontal, lateral and oblique views of the right hand. COMPARISON: No relevant prior studies available. FINDINGS: Bones/joints: Diffuse osseous demineralization. Old fracture of the 5th metacarpal. No acute fracture of dislocation. Soft tissues: Unremarkable. No radiopaque foreign body. IMPRESSION: No acute fracture of dislocation.
== END 2025-03-23 03:53 | disposition home or self-care (01) ==
LOC: EC 01:29
DX: S60.212A Contusion of left wrist, initial encounter (principal); Z87.81 Personal history of (healed) traumatic fracture; F17.290 Nicotine dependence, other tobacco product, uncomplicated; W01.0XXA Fall on same level from slipping, tripping and stumbling without subsequent striking against object, initial encounter
CPT/HCPCS: 99283